=== PATIENT | female | born 1970 | race Caucasian/White ===

== ENCOUNTER 2016-09-17 10:29 | Emergency (ER) | payer OTHER ==
[~2016-09-17 10:29] MED LIST: /DULO30CA OR; /METO25TAB PO; CIPR500T3 PO; EXTR500C4 PO; FLEXERIL PO; HYDR25TA6 OR; IBUP600T OR; IBUP600T26 PO; LYRI75CA OR; MULTIVIT PO; OMEP20TA7 OR; OMEP40CA2 PO; PERC5TAB6 PO; PERC5TAB8 OR; RAMI25CA OR; TRAM50TA2 OR; VICO5TAB PO; VICODINES TAB OR; ZEST20TA8 PO; ZOLO50TA PO
[2016-09-17] MEDS ORDERED: ASPIRIN 81 MG CHEW TABLET As Ordered ONE (10:56)
[2016-09-17 11:00] LABS: BASO % 0.2 % (0.0-1.0); EOS # 0.2 K/mm3 (0.0-0.50); EOS % 1.5 % (0.0-3.0); LARGE UNSTAINED CELL # 0.2 K/mm3 (0.0-0.4); LARGE UNSTAINED CELL % 1.6 % (0.0-4.0); LYMPH # 2.2 K/mm3 (1.5-4.5); LYMPH % 19.1 % (24.0-44.0); MEAN CORPUSCULAR HGB CONC 34.4 g/dl (32.0-36.5); MEAN CORPUSCULAR VOLUME 90.3 fl (80.0-96.0); MONO # 0.4 K/mm3 (0.0-0.8); MONO % 3.1 % (0.0-5.0); NEUTROPHILS # 8.6 K/mm3 (1.8-7.7); NEUTROPHILS % 74.4 % (36.0-66.0); PLATELET COUNT, AUTOMATED 402 k/mm3 (150-450); RED CELL DISTRIBUTION WIDTH 12.2 % (11.5-14.5); WHITE BLOOD COUNT 11.5 K/mm3 (4.0-10.0)
--- NOTE | 2016-09-17 11:45 | REP ---
Portable chest x-ray: Sitting AP view. History: Chest pain. Comparison chest x-ray May 09, 2016. Findings: Sitting AP chest x-ray shows EKG monitoring electrodes. The lungs are symmetrically aerated and clear. There is no evidence of pneumothorax or hydrothorax. No infiltrate is seen. Heart is not enlarged. Pulmonary vasculature is not increased. Impression: No acute disease. Signed by Garrett Sue MD 09/17/2016 01:37 P
[2016-09-17] MEDS ORDERED: PANTOPRAZOLE 40MG INJ (PROTONIX) (C9113) As Ordered ONE (12:00)
[2016-09-17 12:03] LABS: ALBUMIN 3.3 GM/DL (3.2-5.2); ALKALINE PHOSPHATASE 99 U/L (45-117); ALT/SGPT 14 U/L (12-78); ANION GAP 8 MEQ/L (8-16); AST/SGOT 7 U/L (15-37); BILIRUBIN,DIRECT < 0.1 MG/DL (0.0-0.2); BILIRUBIN,TOTAL 0.3 MG/DL (0.2-1.0); BLOOD UREA NITROGEN 9 MG/DL (7-18); CALCIUM LEVEL 8.5 MG/DL (8.5-10.1); CARBON DIOXIDE LEVEL 31 MEQ/L (21-32); CHLORIDE LEVEL 103 MEQ/L (98-107); CREATININE FOR GFR 0.62 MG/DL (0.55-1.02); GLOMERULAR FILTRATION RATE > 60.0 (>58); GLUCOSE, FASTING 98 MG/DL (70-105); POTASSIUM SERUM 3.9 MEQ/L (3.5-5.1); SODIUM LEVEL 142 MEQ/L (136-145); TOTAL PROTEIN 7.4 GM/DL (6.4-8.2)
[2016-09-17] MEDS ORDERED: ALBUTEROL 90 MCG/ACT 8GM HFA INHALER As Ordered ONE (12:50)
--- NOTE | 2016-09-17 13:19 | EDDOCDS ---
Nurse's Notes [facility] Name: Evie Cheung Age: 46 yrs Sex: Female : 1970 Arrival Date: 09/17/2016 Time: 10:29 Bed 12 Private MD: Tom Ge H. Diagnosis: Acute bronchitis;Strain of other muscles, fascia and tendons at shoulder and upper arm level, left arm;Gastritis, unspecified Presentation: 09/17 10:33 Presenting complaint: Patient states: "I have chest pain, it's been going on for the jc4 past 5 days. It's shooting down my left arm and is under my left breast and it hurts between my shoulder blades. I have bright red blood in my stool, but I'm not going to the bathroom really good. I just can't take the pain anymore". Aspirin was not taken prior to arrival. Adult Sepsis Screening: The patient does not have new or worsening altered mentation. Patient's respiratory rate is less than 22. Systolic blood pressure is greater than 100. Patient has a qSOFA score of 0- Negative Sepsis Screen. Suicide/Homicide risk assessment- the patient denies having any suicidal and/or homicidal ideations and does not present with any other emotional, behavioral or mental health complaints. Status: Patient is not a technical services assistant or dependent. Transition of care: patient was not received from another setting of care. 10:33 Acuity: LUIS ANGEL Level 2 jc4 10:33 Method Of Arrival: Walkin/Carried/Asstd jc4 10:45 Red Flag criteria, patient assessed and taken directly to a bed. jc4 Triage Assessment: 10:37 General: Appears in no apparent distress. Pain: Pain currently is 7 out of 10 on a pain jc4 scale. HIV screening NA for this visit Offered previously. Cardiovascular: Chest pain is described as Pain is 7 out of 10 on a pain scale. radiates to right arm(s) scapula episodes are continuous began 5 days ago is aggravated by sitting position. 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 Cymbalta 60 mg Oral cpDR 1 cap once daily (Last dose: 09/16/2016) 2. tramadol 50 mg Oral tab 1 tab every 4-6 hours as needed (Last dose: 09/15/2016) 3. albuterol sulfate 90 mcg/actuation Inhl aepb 1 puff every 4 hours as needed (Last dose: 09/15/2016) 4. fluticasone 50 mcg/actuation nasal spsn 1 spray 2 times per day (Last dose: 09/16/2016) - PMHx: Asthma; Chronic Back pain; Depression; Hypertension; Sleep Apnea w/ CPAP; RA; - PSHx: Hysterectomy; back surgery; - Social history: Smoking status: Patient uses tobacco products, light tobacco smoker. No barriers to communication noted, The patient speaks fluent Setswana. - Family history: Not pertinent. - : The pt / caregiver states he / she is not on anticoagulants. Home medication list is obtained from the patient. - Exposure Risk Screening:: None identified. Screenin:04 Screening information is obtained from the patient. Fall risk: No risks identified. srm Assistance ADL's: requires no assistance with activities of daily living. Abuse/DV Screen: The patient / caregiver reports he/she is: not in a situation that causes fear, pain or injury. Nutritional screening: No deficits noted. Advance Directives: There is no active DNR order. home support is adequate. Assessment: 11:02 General: Appears in no apparent distress, Behavior is appropriate for age, cooperative. srm Neurological: No deficits noted. Cardiovascular: Rhythm is sinus rhythm. Respiratory: Airway is patent Respiratory effort is even, unlabored, Breath sounds are clear bilaterally. GI: Abdomen is non- distended Bowel sounds present X 4 quads. Abd is soft and non tender X 4 quads. Reports sometimes wakes up during the night with sharp pain in her colon. is being worked up for constipation and is in process of setting up a colonoscopy. Derm: No deficits noted. 12:07 General: Appears in no apparent distress, Behavior is appropriate for age, cooperative, srm states chest pain remains. visitors at bedside NSR on monitor. 12:53 General: Appears in no apparent distress, Behavior is appropriate for age, cooperative. srm Neurological: No deficits noted. EENT: No deficits noted. Cardiovascular: Rhythm is sinus rhythm. Respiratory: No deficits noted. Musculoskeletal: Reports hurts to move right arm, shoulder ROM limited due to discomfort and has been having this c/o- hx rheumatoid arthritis. 13:17 Reassessment: Patient appears in no apparent distress at this time. Neurological: No srm deficits noted. EENT: No deficits noted. Cardiovascular: Rhythm is sinus rhythm. Respiratory: No deficits noted. Vital Signs: 10:31 BP 158 / 86; Pulse 109; Resp 18 S; Temp 98.1(O); Pulse Ox 100% on R/A; Weight 81.65 kg dd6 (R); Height 5 ft. 6 in. (167.64 cm) (R); 11:12 Pulse 96 MON; Resp 20; Pulse Ox 97% ; srm 11:13 BP 145 / 82 (auto/); srm 11:55 Pulse 76 MON; Pulse Ox 98% ; srm 12:21 Pulse 80 MON; Pulse Ox 97% ; srm 12:48 BP 141 / 75 (auto/); srm 12:48 Pulse 90 MON; Resp 20; Pulse Ox 97% ; srm 13:14 BP 151 / 83 (auto/); srm 13:14 Pulse 90 MON; Resp 18; Temp 99.1(TE); Pulse Ox 96% ; srm 10:31 Body Mass Index 29.05 (81.65 kg, 167.64 cm) dd6 Vitals: 10:31 Log In Time: September 17, 2016 at 10:29. RN notified that patient meets Red Flag dd6 criteria. ED Course: 10:31 Patient visited by Keyshawn Ye PCA. dd6 10:31 Tom Ge is Private Physician. dd6 10:31 Patient moved to Waiting dd6 10:35 Triage Initiated jc4 10:39 Brinda Tucker,RN is Primary Nurse. jc4 10:39 Patient moved to 12 jc4 10:48 EKG done per protocol. Performed by ED Staff. Shown to Candi Valera MD. srm 10:49 Patient visited by Mayte Torres, NYDIA. srm 10:54 The patient / caregiver is instructed regarding the plan of care and ED course. Patient srm has correct armband on for positive identification. Placed in gown. Bed in low position. Call light in reach. Side rails up X 1. monitoring manager on. Pulse ox on. NIBP on. 10:54 Inserted saline lock: 18 gauge in left antecubital area and blood collected. srm 10:55 B-Type Natiuretic Peptide Sent. srm 10:55 Basic Metabolic Profile Sent. srm 10:55 CBC with Diff Sent. srm 10:55 Cardiac Injury Profile Sent. srm 10:55 Troponin Sent. srm 10:55 Portable x-ray done. srm 11:01 [facility] ar2 11:01 Candi Valera MD is Attending Physician. ar2 11:04 Patient visited by Mayte Torres RN. srm 11:04 Patient visited by Mayte Torres RN. srm 11:09 Patient visited by Derrick Cuevas PA-C. ar2 11:33 LIVER PROFILE Sent. srm 11:33 LIPASE Sent. srm 11:37 [facility] Payment Agreement was scanned into [employer] and attached to record. jp5 11:56 portable chest Returned. EDMS 12:03 Patient visited by Dorina Rios PCA. ct3 12:07 Patient visited by Mayte Torres RN. srm 12:54 Patient visited by Mayte Torres RN. srm 12:57 Patient visited by Mayte Torres RN. srm 13:05 Tom Ge is Referral Physician. ar2 13:14 Patient visited by Dorina Rios PCA. ct3 13:14 Discontinued lock intact, bleeding controlled, pressure dressing applied, No srm redness/swelling at site. No procedures done that require assistance. Administered Medications: 10:58 Drug: Aspirin 324 mg [aspirin 81 mg chewable tablet (4 tabs)] Route: PO; srm 12:03 Drug: pantoprazole 40 mg [pantoprazole 40 mg intravenous solution] Route: IV; Rate: srm bolus; Site: left antecubital; 12:53 Drug: Ventolin 2 puffs [Ventolin HFA 90 mcg/actuation aerosol inhaler (2 puffs)] Route: srm Inhalation; Order Results: Lab Order: B-Type Natiuretic Peptide; SPEC'M 09/17/16 10:53 Test: BRAIN NATRIURETIC PEPTIDE; Value: 11.4; Range: <100; Units: PG/ML; Status: F Lab Order: Basic Metabolic Profile; SPEC'M 09/17/16 11:21 Test: GLUCOSE, FASTING; Value: 98; Range: 70-105; Units: MG/DL; Status: F Test: BLOOD UREA NITROGEN; Value: 9; Range: 7-18; Units: MG/DL; Status: F Test: CREATININE FOR GFR; Value: 0.62; Range: 0.55-1.02; Units: MG/DL; Status: F Test: GLOMERULAR FILTRATION RATE; Value: > 60.0; Range: >58; Status: F Test: SODIUM LEVEL; Value: 142; Range: 136-145; Units: MEQ/L; Status: F Test: POTASSIUM SERUM; Value: 3.9; Range: 3.5-5.1; Units: MEQ/L; Status: F Test: CHLORIDE LEVEL; Value: 103; Range: 98-107; Units: MEQ/L; Status: F Test: CARBON DIOXIDE LEVEL; Value: 31; Range: 21-32; Units: MEQ/L; Status: F Test: ANION GAP; Value: 8; Range: 8-16; Units: MEQ/L; Status: F Test: CALCIUM LEVEL; Value: 8.5; Range: 8.5-10.1; Units: MG/DL; Status: F Test Note: ; Units are mL/min/1.73 m2 Chronic Kidney Disease Staging per NKF: Stage I & II GFR >=60 Normal to Mildly Decreased Stage III GFR 30-59 Moderately Decreased Stage IV GFR 15-29 Severely Decreased Stage V GFR <15 Very Little GFR Left ESRD GFR <15 on FOOD TASTER Lab Order: CBC with Diff; SPEC'M 09/17/16 10:53 Test: WHITE BLOOD COUNT; Value: 11.5; Range: 4.0-10.0; Abnormal: Above high normal; Units: K/mm3; Status: F Test: RED BLOOD COUNT; Value: 4.50; Range: 4.00-5.40; Units: M/mm3; Status: F Test: HEMOGLOBIN; Value: 14.0; Range: 12.0-16.0; Units: g/dl; Status: F Test: HEMATOCRIT; Value: 40.6; Range: 36.0-47.0; Units: %; Status: F Test: MEAN CORPUSCULAR VOLUME; Value: 90.3; Range: 80.0-96.0; Units: fl; Status: F Test: MEAN CORPUSCULAR HEMOGLOBIN; Value: 31.0; Range: 27.0-33.0; Units: pg; Status: F Test: MEAN CORPUSCULAR HGB CONC; Value: 34.4; Range: 32.0-36.5; Units: g/dl; Status: F Test: RED CELL DISTRIBUTION WIDTH; Value: 12.2; Range: 11.5-14.5; Units: %; Status: F Test: PLATELET COUNT, AUTOMATED; Value: 402; Range: 150-450; Units: k/mm3; Status: F Test: NEUTROPHILS %; Value: 74.4; Range: 36.0-66.0; Abnormal: Above high normal; Units: %; Status: F Test: LYMPH %; Value: 19.1; Range: 24.0-44.0; Abnormal: Below low normal; Units: %; Status: F Test: MONO %; Value: 3.1; Range: 0.0-5.0; Units: %; Status: F Test: EOS %; Value: 1.5; Range: 0.0-3.0; Units: %; Status: F Test: BASO %; Value: 0.2; Range: 0.0-1.0; Units: %; Status: F Test: LARGE UNSTAINED CELL %; Value: 1.6; Range: 0.0-4.0; Units: %; Status: F Test: NEUTROPHILS #; Value: 8.6; Range: 1.8-7.7; Abnormal: Above high normal; Units: K/mm3; Status: F Test: LYMPH #; Value: 2.2; Range: 1.5-4.5; Units: K/mm3; Status: F Test: MONO #; Value: 0.4; Range: 0.0-0.8; Units: K/mm3; Status: F Test: EOS #; Value: 0.2; Range: 0.0-0.50; Units: K/mm3; Status: F Test: BASO #; Value: 0.0; Range: 0.0-0.2; Units: K/mm3; Status: F Test: LARGE UNSTAINED CELL #; Value: 0.2; Range: 0.0-0.4; Units: K/mm3; Status: F Lab Order: Cardiac Injury Profile; SPEC'M 09/17/16 11:21 Test: CPK CREATINE PHOSPHOKINASE; Value: 32; Range: 26-192; Units: U/L; Status: F Test: CK-MB VALUE MASS; Value: 1.0; Range: 0.0-3.6; Units: NG/ML; Status: F Test: MB/CK RELATIVE INDEX; Value: 3.12; Range: < OR =4; Status: F Test Note: ; DIAGNOSIS CRITERIA MMB ng/ml Relative Index (RI) NON-AMI < or = 5 N/A CUEVAS ZONE > 5 < or = 4 AMI > 5 > 4 Lab Order: Troponin; [facility] 09/17/16 11:21 Test: TROPONIN I; Value: < 0.02; Range: < 0.10; Units: NG/ML; Status: F Test Note: ; Troponin I Reference Interval for [employer] LOCI: 99th Percentile= 0.00-0.045 ng/ml Risk Stratification: <= 0.10 ng/ml Decreased Risk for Adverse Clinical Events. 0.10-1.50 ng/ml Increased Risk for Adverse Clinical Events. Evaluation of additional criterion and/or repeat testing in 2-6 hours is suggested to rule out myocardial damage. >= 1.50 ng/ml Indicative of Myocardial Injury. Lab Order: LIPASE; [facility] 09/17/16 11:21 Test: LIPASE; Value: 96; Range: 73-393; Units: U/L; Status: F Lab Order: LIVER PROFILE; [facility] 09/17/16 11:21 Test: AST/SGOT; Value: 7; Range: 15-37; Abnormal: Below low normal; Units: U/L; Status: F Test: ALT/SGPT; Value: 14; Range: 12-78; Units: U/L; Status: F Test: ALKALINE PHOSPHATASE; Value: 99; Range: 45-117; Units: U/L; Status: F Test: BILIRUBIN,TOTAL; Value: 0.3; Range: 0.2-1.0; Units: MG/DL; Status: F Test: BILIRUBIN,DIRECT; Value: < 0.1; Range: 0.0-0.2; Units: MG/DL; Status: F Test: TOTAL PROTEIN; Value: 7.4; Range: 6.4-8.2; Units: GM/DL; Status: F Test: ALBUMIN; Value: 3.3; Range: 3.2-5.2; Units: GM/DL; Status: F Test: ALBUMIN/GLOBULIN RATIO; Value: 0.80; Range: 1.00-1.93; Abnormal: Below low normal; Status: F Radiology Order: portable chest Test: portable chest REASON FOR EXAMINATION: Chest Pain; Portable chest x-ray: Sitting AP view.; ; History: Chest pain.; ; Comparison chest x-ray May 09, 2016.; ; Findings: Sitting AP chest x-ray shows EKG monitoring electrodes. The lungs are; symmetrically aerated and clear. There is no evidence of pneumothorax or; hydrothorax. No infiltrate is seen. Heart is not enlarged. Pulmonary; vasculature is not increased.; ; Impression:; ; No acute disease.; ; ; ; ; Unreviewed; Outcome: 13:06 Discharge ordered by Provider. ar2 13:14 Discharge Assessment: Patient awake, alert and oriented x 3. No cognitive and/or srm functional deficits noted. Patient verbalized understanding of disposition instructions. patient administered narcotics - no. The following High Risk Discharge criteria are identified: None. Discharged to home ambulatory. Condition: good Condition: stable. Discharge instructions given to patient, Instructed on discharge instructions, follow up and referral plans. medication usage, Demonstrated understanding of instructions, medications, Pt was receptive of discharge instructions/ teaching. Prescriptions given X 4. No special radiology studies were completed. Property sent home with patient. 13:18 Patient left the ED. srm Signatures: Dispatcher [employer] EDMS Mayte Torres, RN RN Derrick Anderson, PAYulissaC PAYulissaC ar2 Keyshawn Ye, MUSEUM INFORMATICS SPECIALIST MUSEUM INFORMATICS SPECIALIST dd6 Maame Ewing RN RN jc4 Dorina Rios, MUSEUM INFORMATICS SPECIALIST MUSEUM INFORMATICS SPECIALIST ct3 Malika Napier jp5 MTDD
--- NOTE | 2016-09-17 13:19 | EDDOCDS ---
Physician Documentation [facility] Name: Evie Cheung Age: 46 yrs Sex: Female : 1970 Arrival Date: 09/17/2016 Time: 10:29 Bed 12 Private MD: Tom Ge H. Disposition: 09/17/16 13:06 Discharged to Home/Self Care. Impression: Acute bronchitis, Strain of other muscles, fascia and tendons at shoulder and upper arm level, left arm, Gastritis, unspecified. - Condition is Stable. - Discharge Instructions: Acute Bronchitis, Gastritis, Adult, Muscle Pain, Adult, Gastrointestinal Bleeding. - Prescriptions for Prilosec 20 mg Oral Capsule - take 1 capsule by ORAL route once daily; 10 capsule. Prednisone 20 mg Oral Tablet - take 2 tablet by ORAL route once daily for 5 days; 10 tablet. Mucinex 600 mg - take 1 tablet by ORAL route 2 times per day; 30 tablet. benzonatate 200 mg Oral Capsule - take 1 capsule by ORAL route 3 times per day As needed; 30 capsule. - Medication Reconciliation, Local Pharmacy Hours form. - Follow up: Tom Ge; When: 2 - 3 days; Reason: Recheck today's complaints. Follow up: Emergency Department; When: As needed; Reason: Fever > 102F, Trouble breathing, Worsening of conditions. - Problem is new. - Symptoms have improved. Historical: - Allergies: Tetracycline (Rash); - Home Meds: 1. Cymbalta 60 mg Oral cpDR 1 cap once daily (Last dose: 09/16/2016) 2. tramadol 50 mg Oral tab 1 tab every 4-6 hours as needed (Last dose: 09/15/2016) 3. albuterol sulfate 90 mcg/actuation Inhl aepb 1 puff every 4 hours as needed (Last dose: 09/15/2016) 4. fluticasone 50 mcg/actuation nasal spsn 1 spray 2 times per day (Last dose: 09/16/2016) - PMHx: Asthma; Chronic Back pain; Depression; Hypertension; Sleep Apnea w/ CPAP; RA; - PSHx: Hysterectomy; back surgery; - Social history: Smoking status: Patient uses tobacco products, light tobacco smoker. No barriers to communication noted, The patient speaks fluent Maltese. - Family history: Not pertinent. - : The pt / caregiver states he / she is not on anticoagulants. Home medication list is obtained from the patient. - Exposure Risk Screening:: None identified. 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 6 in. (167.64 cm) (R); 11:12 Pulse 96 MON; Resp 20; Pulse Ox 97% ; srm 11:13 BP 145 / 82 (auto/); srm 11:55 Pulse 76 MON; Pulse Ox 98% ; srm 12:21 Pulse 80 MON; Pulse Ox 97% ; srm 12:48 BP 141 / 75 (auto/); srm 12:48 Pulse 90 MON; Resp 20; Pulse Ox 97% ; srm 13:14 BP 151 / 83 (auto/); srm 13:14 Pulse 90 MON; Resp 18; Temp 99.1(TE); Pulse Ox 96% ; srm 10:31 Body Mass Index 29.05 (81.65 kg, 167.64 cm) dd6 MDM: 10:39 ECG WITH READING ER PHYS+CARDIAG ordered. EDMS 10:45 Aspirin Chewable Tablet 324 mg PO once ordered. fg 10:45 Telephone Operators Supervisor/Pulse Ox/q 30 min VS ordered. fg 10:45 IV Saline Lock ordered. fg 10:45 Rhythm Strip to chart ordered. fg 10:45 Undress patient appropriately for examination ordered. fg 10:47 B-Type Natiuretic Peptide Ordered. EDMS 10:47 Basic Metabolic Profile Ordered. EDMS 10:47 CBC with Diff Ordered. EDMS 10:47 Cardiac Injury Profile Ordered. EDMS 10:47 Troponin Ordered. EDMS 10:47 portable chest Ordered. EDMS 11:20 Misc. Nursing Order ordered. ar2 11:20 pantoprazole 40 mg IV at bolus once ordered. ar2 11:31 LIPASE Ordered. EDMS 11:31 LIVER PROFILE Ordered. EDMS 11:37 [facility] Payment Agreement was scanned into [employer] and attached to record. jp5 11:37 Financial registration complete. jp5 12:37 CBC with Diff Reviewed. ar2 12:37 LIVER PROFILE Reviewed. ar2 12:37 B-Type Natiuretic Peptide Reviewed. ar2 12:37 Basic Metabolic Profile Reviewed. ar2 12:37 Cardiac Injury Profile Reviewed. ar2 12:37 Troponin Reviewed. ar2 12:37 LIPASE Reviewed. ar2 12:37 portable chest Reviewed. ar2 12:43 Ventolin Inhaler 2 puffs Inhalation once ordered. ar2 Administered Medications: 10:58 Drug: Aspirin 324 mg [aspirin 81 mg chewable tablet (4 tabs)] Route: PO; srm 12:03 Drug: pantoprazole 40 mg [pantoprazole 40 mg intravenous solution] Route: IV; Rate: srm bolus; Site: left antecubital; 12:53 Drug: Ventolin 2 puffs [Ventolin HFA 90 mcg/actuation aerosol inhaler (2 puffs)] Route: srm Inhalation; Signatures: Dispatcher [employer] Mayte Greenwood, RN RN srm Derrick Cuevas PA-C PA-C ar2 Maame Ewing RN RN jc4 Malika Napier jp5 Candi Valera MD MD fg The chart was reviewed and I authenticate all verbal orders and agree with the evaluation and treatment provided.Corrections: (The following items were deleted from the chart) 11:31 11:21 LIVER PROFILE+LAB ordered. EDMS EDMS 11:31 11:21 LIPASE+LAB ordered. EDMS EDMS Attachments: 11:37 [facility] Payment Agreement jp5 MTDD
--- NOTE | 2016-09-18 08:01 | ECGEPIP ---
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
--- NOTE | 2016-09-19 14:19 | EDDOCDS ---
Nurse's Notes [facility] Name: Avtar Chadwick Age: 46 yrs Sex: Female : 1970 Arrival Date: 09/17/2016 Time: 10:29 Bed 12 Private MD: Tom Ge H. Diagnosis: Acute bronchitis;Strain of other muscles, fascia and tendons at shoulder and upper arm level, left arm;Gastritis, unspecified Presentation: 09/17 10:33 Presenting complaint: Patient states: "I have chest pain, it's been going on for the jc4 past 5 days. It's shooting down my left arm and is under my left breast and it hurts between my shoulder blades. I have bright red blood in my stool, but I'm not going to the bathroom really good. I just can't take the pain anymore". Aspirin was not taken prior to arrival. Adult Sepsis Screening: The patient does not have new or worsening altered mentation. Patient's respiratory rate is less than 22. Systolic blood pressure is greater than 100. Patient has a qSOFA score of 0- Negative Sepsis Screen. Suicide/Homicide risk assessment- the patient denies having any suicidal and/or homicidal ideations and does not present with any other emotional, behavioral or mental health complaints. Status: Patient is not a food service sales representatives or dependent. Transition of care: patient was not received from another setting of care. 10:33 Acuity: LUIS ANGEL Level 2 jc4 10:33 Method Of Arrival: Walkin/Carried/Asstd jc4 10:45 Red Flag criteria, patient assessed and taken directly to a bed. jc4 Triage Assessment: 10:37 General: Appears in no apparent distress. Pain: Pain currently is 7 out of 10 on a pain jc4 scale. HIV screening NA for this visit Offered previously. Cardiovascular: Chest pain is described as Pain is 7 out of 10 on a pain scale. radiates to right arm(s) scapula episodes are continuous began 5 days ago is aggravated by sitting position. 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 Cymbalta 60 mg Oral cpDR 1 cap once daily (Last dose: 09/16/2016) 2. tramadol 50 mg Oral tab 1 tab every 4-6 hours as needed (Last dose: 09/15/2016) 3. albuterol sulfate 90 mcg/actuation Inhl aepb 1 puff every 4 hours as needed (Last dose: 09/15/2016) 4. fluticasone 50 mcg/actuation nasal spsn 1 spray 2 times per day (Last dose: 09/16/2016) - PMHx: Asthma; Chronic Back pain; Depression; Hypertension; Sleep Apnea w/ CPAP; RA; - PSHx: Hysterectomy; back surgery; - Social history: Smoking status: Patient uses tobacco products, light tobacco smoker. No barriers to communication noted, The patient speaks fluent Wolof. - Family history: Not pertinent. - : The pt / caregiver states he / she is not on anticoagulants. Home medication list is obtained from the patient. - Exposure Risk Screening:: None identified. Screenin:04 Screening information is obtained from the patient. Fall risk: No risks identified. srm Assistance ADL's: requires no assistance with activities of daily living. Abuse/DV Screen: The patient / caregiver reports he/she is: not in a situation that causes fear, pain or injury. Nutritional screening: No deficits noted. Advance Directives: There is no active DNR order. home support is adequate. Assessment: 11:02 General: Appears in no apparent distress, Behavior is appropriate for age, cooperative. srm Neurological: No deficits noted. Cardiovascular: Rhythm is sinus rhythm. Respiratory: Airway is patent Respiratory effort is even, unlabored, Breath sounds are clear bilaterally. GI: Abdomen is non- distended Bowel sounds present X 4 quads. Abd is soft and non tender X 4 quads. Reports sometimes wakes up during the night with sharp pain in her colon. is being worked up for constipation and is in process of setting up a colonoscopy. Derm: No deficits noted. 12:07 General: Appears in no apparent distress, Behavior is appropriate for age, cooperative, srm states chest pain remains. visitors at bedside NSR on monitor. 12:53 General: Appears in no apparent distress, Behavior is appropriate for age, cooperative. srm Neurological: No deficits noted. EENT: No deficits noted. Cardiovascular: Rhythm is sinus rhythm. Respiratory: No deficits noted. Musculoskeletal: Reports hurts to move right arm, shoulder ROM limited due to discomfort and has been having this c/o- hx rheumatoid arthritis. 13:17 Reassessment: Patient appears in no apparent distress at this time. Neurological: No srm deficits noted. EENT: No deficits noted. Cardiovascular: Rhythm is sinus rhythm. Respiratory: No deficits noted. Vital Signs: 10:31 BP 158 / 86; Pulse 109; Resp 18 S; Temp 98.1(O); Pulse Ox 100% on R/A; Weight 81.65 kg dd6 (R); Height 5 ft. 6 in. (167.64 cm) (R); 11:12 Pulse 96 MON; Resp 20; Pulse Ox 97% ; srm 11:13 BP 145 / 82 (auto/); srm 11:55 Pulse 76 MON; Pulse Ox 98% ; srm 12:21 Pulse 80 MON; Pulse Ox 97% ; srm 12:48 BP 141 / 75 (auto/); srm 12:48 Pulse 90 MON; Resp 20; Pulse Ox 97% ; srm 13:14 BP 151 / 83 (auto/); srm 13:14 Pulse 90 MON; Resp 18; Temp 99.1(TE); Pulse Ox 96% ; srm 10:31 Body Mass Index 29.05 (81.65 kg, 167.64 cm) dd6 Vitals: 10:31 Log In Time: September 17, 2016 at 10:29. RN notified that patient meets Red Flag dd6 criteria. ED Course: 10:31 Patient visited by Keyshawn Ye PCA. dd6 10:31 Tom Ge is Private Physician. dd6 10:31 Patient moved to Waiting dd6 10:35 Triage Initiated jc4 10:39 Brinda Tucker,RN is Primary Nurse. jc4 10:39 Patient moved to 12 jc4 10:48 EKG done per protocol. Performed by ED Staff. Shown to Candi Valera MD. srm 10:49 Patient visited by Mayte Torres, NYDIA. srm 10:54 The patient / caregiver is instructed regarding the plan of care and ED course. Patient srm has correct armband on for positive identification. Placed in gown. Bed in low position. Call light in reach. Side rails up X 1. chemistry physics teacher on. Pulse ox on. NIBP on. 10:54 Inserted saline lock: 18 gauge in left antecubital area and blood collected. srm 10:55 B-Type Natiuretic Peptide Sent. srm 10:55 Basic Metabolic Profile Sent. srm 10:55 CBC with Diff Sent. srm 10:55 Cardiac Injury Profile Sent. srm 10:55 Troponin Sent. srm 10:55 Portable x-ray done. srm 11:01 Derrick Cuevas PA-C is PHCP. ar2 11:01 Candi Valera MD is Attending Physician. ar2 11:04 Patient visited by Mayte Torres RN. srm 11:04 Patient visited by Mayte Torres RN. srm 11:09 Patient visited by Derrick Cuevas PA-C. ar2 11:33 LIVER PROFILE Sent. srm 11:33 LIPASE Sent. srm 11:37 [facility] Payment Agreement was scanned into [email or web address] and attached to record. jp5 11:56 portable chest Returned. EDMS 12:03 Patient visited by Dorina Rios PCA. ct3 12:07 Patient visited by Mayte Torres RN. srm 12:54 Patient visited by Mayte Torres RN. srm 12:57 Patient visited by Mayte Torres RN. srm 13:05 Tom Ge is Referral Physician. ar2 13:14 Patient visited by Dorina Rios PCA. ct3 13:14 Discontinued lock intact, bleeding controlled, pressure dressing applied, No srm redness/swelling at site. No procedures done that require assistance. 13:50 portable chest Returned. EDMS 14:43 T-Sheet-- Draft Copy was scanned into [email or web address] and attached to record. gb 14:43 ECG/EKG was scanned into [email or web address] and attached to record. gb 14:43 Trend VS was scanned into [email or web address] and attached to record. gb 14:43 Radiology Report was scanned into [email or web address] and attached to record. gb 09/18 08:09 EKG-ADULT Returned. EDMS Administered Medications: 09/17 10:58 Drug: Aspirin 324 mg [aspirin 81 mg chewable tablet (4 tabs)] Route: PO; srm 12:03 Drug: pantoprazole 40 mg [pantoprazole 40 mg intravenous solution] Route: IV; Rate: srm bolus; Site: left antecubital; 12:53 Drug: Ventolin 2 puffs [Ventolin HFA 90 mcg/actuation aerosol inhaler (2 puffs)] Route: srm Inhalation; Attachments: 14:43 Trend VS gb Order Results: Lab Order: B-Type Natiuretic Peptide; SPEC'M 09/17/16 10:53 Test: BRAIN NATRIURETIC PEPTIDE; Value: 11.4; Range: <100; Units: PG/ML; Status: F Lab Order: Basic Metabolic Profile; [facility] 09/17/16 11:21 Test: GLUCOSE, FASTING; Value: 98; Range: 70-105; Units: MG/DL; Status: F Test: BLOOD UREA NITROGEN; Value: 9; Range: 7-18; Units: MG/DL; Status: F Test: CREATININE FOR GFR; Value: 0.62; Range: 0.55-1.02; Units: MG/DL; Status: F Test: GLOMERULAR FILTRATION RATE; Value: > 60.0; Range: >58; Status: F Test: SODIUM LEVEL; Value: 142; Range: 136-145; Units: MEQ/L; Status: F Test: POTASSIUM SERUM; Value: 3.9; Range: 3.5-5.1; Units: MEQ/L; Status: F Test: CHLORIDE LEVEL; Value: 103; Range: 98-107; Units: MEQ/L; Status: F Test: CARBON DIOXIDE LEVEL; Value: 31; Range: 21-32; Units: MEQ/L; Status: F Test: ANION GAP; Value: 8; Range: 8-16; Units: MEQ/L; Status: F Test: CALCIUM LEVEL; Value: 8.5; Range: 8.5-10.1; Units: MG/DL; Status: F Test Note: ; Units are mL/min/1.73 m2 Chronic Kidney Disease Staging per NKF: Stage I & II GFR >=60 Normal to Mildly Decreased Stage III GFR 30-59 Moderately Decreased Stage IV GFR 15-29 Severely Decreased Stage V GFR <15 Very Little GFR Left ESRD GFR <15 on RECONSIGNMENT CLERK Lab Order: CBC with Diff; [facility]' 09/17/16 10:53 Test: WHITE BLOOD COUNT; Value: 11.5; Range: 4.0-10.0; Abnormal: Above high normal; Units: K/mm3; Status: F Test: RED BLOOD COUNT; Value: 4.50; Range: 4.00-5.40; Units: M/mm3; Status: F Test: HEMOGLOBIN; Value: 14.0; Range: 12.0-16.0; Units: g/dl; Status: F Test: HEMATOCRIT; Value: 40.6; Range: 36.0-47.0; Units: %; Status: F Test: MEAN CORPUSCULAR VOLUME; Value: 90.3; Range: 80.0-96.0; Units: fl; Status: F Test: MEAN CORPUSCULAR HEMOGLOBIN; Value: 31.0; Range: 27.0-33.0; Units: pg; Status: F Test: MEAN CORPUSCULAR HGB CONC; Value: 34.4; Range: 32.0-36.5; Units: g/dl; Status: F Test: RED CELL DISTRIBUTION WIDTH; Value: 12.2; Range: 11.5-14.5; Units: %; Status: F Test: PLATELET COUNT, AUTOMATED; Value: 402; Range: 150-450; Units: k/mm3; Status: F Test: NEUTROPHILS %; Value: 74.4; Range: 36.0-66.0; Abnormal: Above high normal; Units: %; Status: F Test: LYMPH %; Value: 19.1; Range: 24.0-44.0; Abnormal: Below low normal; Units: %; Status: F Test: MONO %; Value: 3.1; Range: 0.0-5.0; Units: %; Status: F Test: EOS %; Value: 1.5; Range: 0.0-3.0; Units: %; Status: F Test: BASO %; Value: 0.2; Range: 0.0-1.0; Units: %; Status: F Test: LARGE UNSTAINED CELL %; Value: 1.6; Range: 0.0-4.0; Units: %; Status: F Test: NEUTROPHILS #; Value: 8.6; Range: 1.8-7.7; Abnormal: Above high normal; Units: K/mm3; Status: F Test: LYMPH #; Value: 2.2; Range: 1.5-4.5; Units: K/mm3; Status: F Test: MONO #; Value: 0.4; Range: 0.0-0.8; Units: K/mm3; Status: F Test: EOS #; Value: 0.2; Range: 0.0-0.50; Units: K/mm3; Status: F Test: BASO #; Value: 0.0; Range: 0.0-0.2; Units: K/mm3; Status: F Test: LARGE UNSTAINED CELL #; Value: 0.2; Range: 0.0-0.4; Units: K/mm3; Status: F Lab Order: Cardiac Injury Profile; [facility] 09/17/16 11:21 Test: CPK CREATINE PHOSPHOKINASE; Value: 32; Range: 26-192; Units: U/L; Status: F Test: CK-MB VALUE MASS; Value: 1.0; Range: 0.0-3.6; Units: NG/ML; Status: F Test: MB/CK RELATIVE INDEX; Value: 3.12; Range: < OR =4; Status: F Test Note: ; DIAGNOSIS CRITERIA MMB ng/ml Relative Index (RI) NON-AMI < or = 5 N/A CUEVAS ZONE > 5 < or = 4 AMI > 5 > 4 Lab Order: Troponin; [facility] 09/17/16 11: Test: TROPONIN I; Value: < 0.02; Range: < 0.10; Units: NG/ML; Status: F Test Note: ; Troponin I Reference Interval for [employer] LOCI: 99th Percentile= 0.00-0.045 ng/ml Risk Stratification: <= 0.10 ng/ml Decreased Risk for Adverse Clinical Events. 0.10-1.50 ng/ml Increased Risk for Adverse Clinical Events. Evaluation of additional criterion and/or repeat testing in 2-6 hours is suggested to rule out myocardial damage. >= 1.50 ng/ml Indicative of Myocardial Injury. Lab Order: LIPASE; [facility] 09/17/16 11:21 Test: LIPASE; Value: 96; Range: 73-393; Units: U/L; Status: F Lab Order: LIVER PROFILE; [facility] 09/17/16 11:21 Test: AST/SGOT; Value: 7; Range: 15-37; Abnormal: Below low normal; Units: U/L; Status: F Test: ALT/SGPT; Value: 14; Range: 12-78; Units: U/L; Status: F Test: ALKALINE PHOSPHATASE; Value: 99; Range: 45-117; Units: U/L; Status: F Test: BILIRUBIN,TOTAL; Value: 0.3; Range: 0.2-1.0; Units: MG/DL; Status: F Test: BILIRUBIN,DIRECT; Value: < 0.1; Range: 0.0-0.2; Units: MG/DL; Status: F Test: TOTAL PROTEIN; Value: 7.4; Range: 6.4-8.2; Units: GM/DL; Status: F Test: ALBUMIN; Value: 3.3; Range: 3.2-5.2; Units: GM/DL; Status: F Test: ALBUMIN/GLOBULIN RATIO; Value: 0.80; Range: 1.00-1.93; Abnormal: Below low normal; Status: F Radiology Order: EKG-ADULT Test: EKG-ADULT REASON FOR EXAMINATION: Chest Pain; Stationary ECG Study; [facility] - ED; ; Test Date: 2016-09-17; Pat Name: AVTAR CHADWICK Department:; Room: -; Gender: F [employer]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 The lungs are; symmetrically aerated and clear. There is no evidence of pneumothorax or; hydrothorax. No infiltrate is seen. Heart is not enlarged. Pulmonary; vasculature is not increased.; ; Impression:; ; No acute disease.; ; ; Signed by; Garrett Sue MD 09/17/2016 01:37 P; Outcome: 13:06 Discharge ordered by Provider. ar2 13:14 Discharge Assessment: Patient awake, alert and oriented x 3. No cognitive and/or srm functional deficits noted. Patient verbalized understanding of disposition instructions. patient administered narcotics - no. The following High Risk Discharge criteria are identified: None. Discharged to home ambulatory. Condition: good Condition: stable. Discharge instructions given to patient, Instructed on discharge instructions, follow up and referral plans. medication usage, Demonstrated understanding of instructions, medications, Pt was receptive of discharge instructions/ teaching. Prescriptions given X 4. No special radiology studies were completed. Property sent home with patient. 13:18 Patient left the ED. srm Signatures: Dispatcher [employer] EDMS Mayte Torres, RN RN srm Carla Bravo, Reg Reg gb Derrick Cuevas, ARELY PA-Sonam ar2 Keyshawn Ye, CAUSTIC OPERATOR CAUSTIC OPERATOR dd6 Maame Ewing RN RN jc4 Dorina Rios, CAUSTIC OPERATOR CAUSTIC OPERATOR ct3 Malika Napier jp5 Chart Complete MTDD
--- NOTE | 2016-09-19 14:19 | EDDOCDS ---
Physician Documentation [facility] Name: Evie Cheung Age: 46 yrs Sex: Female : 1970 Arrival Date: 09/17/2016 Time: 10:29 Bed 12 Private MD: Tom Ge H. Disposition: 09/17/16 13:06 Discharged to Home/Self Care. Impression: Acute bronchitis, Strain of other muscles, fascia and tendons at shoulder and upper arm level, left arm, Gastritis, unspecified. - Condition is Stable. - Discharge Instructions: Acute Bronchitis, Gastritis, Adult, Muscle Pain, Adult, Gastrointestinal Bleeding. - Prescriptions for Prilosec 20 mg Oral Capsule - take 1 capsule by ORAL route once daily; 10 capsule. Prednisone 20 mg Oral Tablet - take 2 tablet by ORAL route once daily for 5 days; 10 tablet. Mucinex 600 mg - take 1 tablet by ORAL route 2 times per day; 30 tablet. benzonatate 200 mg Oral Capsule - take 1 capsule by ORAL route 3 times per day As needed; 30 capsule. - Medication Reconciliation, Local Pharmacy Hours form. - Follow up: Tom Ge; When: 2 - 3 days; Reason: Recheck today's complaints. Follow up: Emergency Department; When: As needed; Reason: Fever > 102F, Trouble breathing, Worsening of conditions. - Problem is new. - Symptoms have improved. Historical: - Allergies: Tetracycline (Rash); - Home Meds: 1. Cymbalta 60 mg Oral cpDR 1 cap once daily (Last dose: 09/16/2016) 2. tramadol 50 mg Oral tab 1 tab every 4-6 hours as needed (Last dose: 09/15/2016) 3. albuterol sulfate 90 mcg/actuation Inhl aepb 1 puff every 4 hours as needed (Last dose: 09/15/2016) 4. fluticasone 50 mcg/actuation nasal spsn 1 spray 2 times per day (Last dose: 09/16/2016) - PMHx: Asthma; Chronic Back pain; Depression; Hypertension; Sleep Apnea w/ CPAP; RA; - PSHx: Hysterectomy; back surgery; - Social history: Smoking status: Patient uses tobacco products, light tobacco smoker. No barriers to communication noted, The patient speaks fluent Estonian. - Family history: Not pertinent. - : The pt / caregiver states he / she is not on anticoagulants. Home medication list is obtained from the patient. - Exposure Risk Screening:: None identified. 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 6 in. (167.64 cm) (R); 11:12 Pulse 96 MON; Resp 20; Pulse Ox 97% ; srm 11:13 BP 145 / 82 (auto/); srm 11:55 Pulse 76 MON; Pulse Ox 98% ; srm 12:21 Pulse 80 MON; Pulse Ox 97% ; srm 12:48 BP 141 / 75 (auto/); srm 12:48 Pulse 90 MON; Resp 20; Pulse Ox 97% ; srm 13:14 BP 151 / 83 (auto/); srm 13:14 Pulse 90 MON; Resp 18; Temp 99.1(TE); Pulse Ox 96% ; srm 10:31 Body Mass Index 29.05 (81.65 kg, 167.64 cm) dd6 MDM: 10:39 ECG WITH READING ER PHYS+CARDIAG ordered. EDMS 10:45 Aspirin Chewable Tablet 324 mg PO once ordered. fg 10:45 Extractor Loader And Unloader/Pulse Ox/q 30 min VS ordered. fg 10:45 IV Saline Lock ordered. fg 10:45 Rhythm Strip to chart ordered. fg 10:45 Undress patient appropriately for examination ordered. fg 10:47 B-Type Natiuretic Peptide Ordered. EDMS 10:47 Basic Metabolic Profile Ordered. EDMS 10:47 CBC with Diff Ordered. EDMS 10:47 Cardiac Injury Profile Ordered. EDMS 10:47 Troponin Ordered. EDMS 10:47 portable chest Ordered. EDMS 11:20 Misc. Nursing Order ordered. ar2 11:20 pantoprazole 40 mg IV at bolus once ordered. ar2 11:31 LIPASE Ordered. EDMS 11:31 LIVER PROFILE Ordered. EDMS 11:37 [facility] Payment Agreement was scanned into [employer] and attached to record. jp5 11:37 Financial registration complete. jp5 12:37 CBC with Diff Reviewed. ar2 12:37 LIVER PROFILE Reviewed. ar2 12:37 B-Type Natiuretic Peptide Reviewed. ar2 12:37 Basic Metabolic Profile Reviewed. ar2 12:37 Cardiac Injury Profile Reviewed. ar2 12:37 Troponin Reviewed. ar2 12:37 LIPASE Reviewed. ar2 12:37 portable chest Reviewed. ar2 12:43 Ventolin Inhaler 2 puffs Inhalation once ordered. ar2 14:43 T-Sheet-- Draft Copy was scanned into [employer] and attached to record. gb 14:43 ECG/EKG was scanned into [employer] and attached to record. gb 14:43 Trend VS was scanned into [employer] and attached to record. gb 14:43 Radiology Report was scanned into [employer] and attached to record. gb Administered Medications: 10:58 Drug: Aspirin 324 mg [aspirin 81 mg chewable tablet (4 tabs)] Route: PO; srm 12:03 Drug: pantoprazole 40 mg [pantoprazole 40 mg intravenous solution] Route: IV; Rate: srm bolus; Site: left antecubital; 12:53 Drug: Ventolin 2 puffs [Ventolin HFA 90 mcg/actuation aerosol inhaler (2 puffs)] Route: srm Inhalation; Signatures: Dispatcher [employer] EDMS Mayte Torres, RN RN srm Shelly, Carla, Reg Reg gb Derrick Cuevas, ARELY MCGEE ar2 Maame Ewing, RN RN Malika Judge jp5 Candi Valera MD MD fg The chart was reviewed and I authenticate all verbal orders and agree with the evaluation and treatment provided.Corrections: (The following items were deleted from the chart) 11:31 11:21 LIVER PROFILE+LAB ordered. EDMS EDMS 11:31 11:21 LIPASE+LAB ordered. EDMS EDMS Attachments: 11:37 [facility] Payment Agreement jp5 14:43 T-Sheet-- Draft Copy gb 14:43 ECG/EKG gb Chart Complete MTDD
--- NOTE | 2016-09-19 14:19 | EDDOCDS ---
Physician Documentation [facility] Name: Evie Cheung Age: 46 yrs Sex: Female : 1970 Arrival Date: 09/17/2016 Time: 10:29 Bed 12 Private MD: Tom Ge H. Disposition: 09/17/16 13:06 Discharged to Home/Self Care. Impression: Acute bronchitis, Strain of other muscles, fascia and tendons at shoulder and upper arm level, left arm, Gastritis, unspecified. - Condition is Stable. - Discharge Instructions: Acute Bronchitis, Gastritis, Adult, Muscle Pain, Adult, Gastrointestinal Bleeding. - Prescriptions for Prilosec 20 mg Oral Capsule - take 1 capsule by ORAL route once daily; 10 capsule. Prednisone 20 mg Oral Tablet - take 2 tablet by ORAL route once daily for 5 days; 10 tablet. Mucinex 600 mg - take 1 tablet by ORAL route 2 times per day; 30 tablet. benzonatate 200 mg Oral Capsule - take 1 capsule by ORAL route 3 times per day As needed; 30 capsule. - Medication Reconciliation, Local Pharmacy Hours form. - Follow up: Tom Ge; When: 2 - 3 days; Reason: Recheck today's complaints. Follow up: Emergency Department; When: As needed; Reason: Fever > 102F, Trouble breathing, Worsening of conditions. - Problem is new. - Symptoms have improved. Historical: - Allergies: Tetracycline (Rash); - Home Meds: 1. Cymbalta 60 mg Oral cpDR 1 cap once daily (Last dose: 09/16/2016) 2. tramadol 50 mg Oral tab 1 tab every 4-6 hours as needed (Last dose: 09/15/2016) 3. albuterol sulfate 90 mcg/actuation Inhl aepb 1 puff every 4 hours as needed (Last dose: 09/15/2016) 4. fluticasone 50 mcg/actuation nasal spsn 1 spray 2 times per day (Last dose: 09/16/2016) - PMHx: Asthma; Chronic Back pain; Depression; Hypertension; Sleep Apnea w/ CPAP; RA; - PSHx: Hysterectomy; back surgery; - Social history: Smoking status: Patient uses tobacco products, light tobacco smoker. No barriers to communication noted, The patient speaks fluent Amharic. - Family history: Not pertinent. - : The pt / caregiver states he / she is not on anticoagulants. Home medication list is obtained from the patient. - Exposure Risk Screening:: None identified. 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 6 in. (167.64 cm) (R); 11:12 Pulse 96 MON; Resp 20; Pulse Ox 97% ; srm 11:13 BP 145 / 82 (auto/); srm 11:55 Pulse 76 MON; Pulse Ox 98% ; srm 12:21 Pulse 80 MON; Pulse Ox 97% ; srm 12:48 BP 141 / 75 (auto/); srm 12:48 Pulse 90 MON; Resp 20; Pulse Ox 97% ; srm 13:14 BP 151 / 83 (auto/); srm 13:14 Pulse 90 MON; Resp 18; Temp 99.1(TE); Pulse Ox 96% ; srm 10:31 Body Mass Index 29.05 (81.65 kg, 167.64 cm) dd6 MDM: 10:39 ECG WITH READING ER PHYS+CARDIAG ordered. EDMS 10:45 Aspirin Chewable Tablet 324 mg PO once ordered. fg 10:45 Oceanographer Physical/Pulse Ox/q 30 min VS ordered. fg 10:45 IV Saline Lock ordered. fg 10:45 Rhythm Strip to chart ordered. fg 10:45 Undress patient appropriately for examination ordered. fg 10:47 B-Type Natiuretic Peptide Ordered. EDMS 10:47 Basic Metabolic Profile Ordered. EDMS 10:47 CBC with Diff Ordered. EDMS 10:47 Cardiac Injury Profile Ordered. EDMS 10:47 Troponin Ordered. EDMS 10:47 portable chest Ordered. EDMS 11:20 Misc. Nursing Order ordered. ar2 11:20 pantoprazole 40 mg IV at bolus once ordered. ar2 11:31 LIPASE Ordered. EDMS 11:31 LIVER PROFILE Ordered. EDMS 11:37 [facility] Payment Agreement was scanned into marker.to and attached to record. jp5 11:37 Financial registration complete. jp5 12:37 CBC with Diff Reviewed. ar2 12:37 LIVER PROFILE Reviewed. ar2 12:37 B-Type Natiuretic Peptide Reviewed. ar2 12:37 Basic Metabolic Profile Reviewed. ar2 12:37 Cardiac Injury Profile Reviewed. ar2 12:37 Troponin Reviewed. ar2 12:37 LIPASE Reviewed. ar2 12:37 portable chest Reviewed. ar2 12:43 Ventolin Inhaler 2 puffs Inhalation once ordered. ar2 14:43 T-Sheet-- Draft Copy was scanned into marker.to and attached to record. gb 14:43 ECG/EKG was scanned into [employer] and attached to record. gb 14:43 Trend VS was scanned into MED[employer] and attached to record. gb 14:43 Radiology Report was scanned into MEDHOST and attached to record. gb Administered Medications: 10:58 Drug: Aspirin 324 mg [aspirin 81 mg chewable tablet (4 tabs)] Route: PO; srm 12:03 Drug: pantoprazole 40 mg [pantoprazole 40 mg intravenous solution] Route: IV; Rate: srm bolus; Site: left antecubital; 12:53 Drug: Ventolin 2 puffs [Ventolin HFA 90 mcg/actuation aerosol inhaler (2 puffs)] Route: srm Inhalation; Signatures: Dispatcher [employer] EDMS Mayte Torres, RN RN srm Shelly, Carla, Reg Reg gb Derrick Cuevas, ARELY MCGEE ar2 Maame Ewing, RN RN Malika Judge jp5 Candi Valera MD MD fg The chart was reviewed and I authenticate all verbal orders and agree with the evaluation and treatment provided.Corrections: (The following items were deleted from the chart) 11:31 11:21 LIVER PROFILE+LAB ordered. EDMS EDMS 11:31 11:21 LIPASE+LAB ordered. EDMS EDMS Attachments: 11:37 [facility] Payment Agreement jp5 14:43 T-Sheet-- Draft Copy gb 14:43 ECG/EKG gb Chart Complete MTDD
== END 2016-09-17 13:18 | disposition home or self-care (01) ==
LOC: M ED 10:29
DX: J20.9 Acute bronchitis, unspecified (principal); K29.00 Acute gastritis without bleeding; S46.912A Strain of unspecified muscle, fascia and tendon at shoulder and upper arm level, left arm, initial encounter; J45.909 Unspecified asthma, uncomplicated; F32.9 Major depressive disorder, single episode, unspecified; I10 Essential (primary) hypertension; G47.33 Obstructive sleep apnea (adult) (pediatric); M06.9 Rheumatoid arthritis, unspecified; F17.210 Nicotine dependence, cigarettes, uncomplicated; Z92.240 Personal history of inhaled steroid therapy; Z79.891 Long term (current) use of opiate analgesic; Z79.899 Other long term (current) drug therapy; Z88.1 Allergy status to other antibiotic agents; X58.XXXA Exposure to other specified factors, initial encounter; Y92.89 Other specified places as the place of occurrence of the external cause; Y93.89 Activity, other specified; Y99.9 Unspecified external cause status
CPT/HCPCS: 36415; 71010; 80048; 80076; 82550; 82553; 83690; 83880; 85025; 93005; 93041; 96374; 99285; C9113

== ENCOUNTER → 2017-01-05 | Outpatient (REF) | payer OTHER, MEDICAID ==
[~2017-01-05] MED LIST changes: +ALBU17IN INH; +CYMB60CA3 PO; +FLUTISP; +NORT50CA PO; +TRAM50TA2 PO
== END ==
LOC: M LABWUC 19:10
PROVIDERS: ATTEND Internal Medicine Rheumatology
DX: M06.09 Rheumatoid arthritis without rheumatoid factor, multiple sites (principal)

== ENCOUNTER 2017-02-06 11:05 | Emergency (ER) | payer MEDICAID, OTHER ==
[~2017-02-06] VITALS: Ht 167.6 cm; Wt 89.4 kg
[2017-02-06] MEDS ORDERED: PRED10TA PO ×2 (11:19)
[2017-02-06] MEDS ORDERED: OMEP40CA2 PO (11:19)
[2017-02-06] MEDS ORDERED: HYDR-3713 PO (12:16)
[2017-02-06 12:46] VITALS: BP 150/84
--- NOTE | 2017-02-07 08:18 | ECGEPIP ---
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
== END 2017-02-06 12:45 | disposition home or self-care (01) ==
LOC: M ED 12:01
DX: M54.12 Radiculopathy, cervical region (principal); I10 Essential (primary) hypertension; K44.9 Diaphragmatic hernia without obstruction or gangrene; F41.9 Anxiety disorder, unspecified; F32.9 Major depressive disorder, single episode, unspecified; M06.9 Rheumatoid arthritis, unspecified; F17.200 Nicotine dependence, unspecified, uncomplicated; Z98.1 Arthrodesis status; Z87.442 Personal history of urinary calculi; Z90.79 Acquired absence of other genital organ(s); Z79.899 Other long term (current) drug therapy; Z88.1 Allergy status to other antibiotic agents; Z88.8 Allergy status to other drugs, medicaments and biological substances

== ENCOUNTER 2017-04-12 08:30 | Emergency (ER) | payer OTHER ==
[~2017-04-12] VITALS: Ht 170.2 cm; Wt 81.8 kg
[~2017-04-12 08:30] MED LIST changes: +FLUT1SPR2; +HYDR-3713 PO; +OMEP20CA3 PO; +PERC5TAB12 PO; -PERC5TAB6 PO; +PRED10TA2 PO
[2017-04-12] MEDS ORDERED: KETOROLAC 60 MG/2 ML VIAL (J1885) IM ONE (09:15)
[2017-04-12] MEDS ORDERED: METHOCARBAMOL 500 MG TAB PO ONE (09:15)
--- NOTE | 2017-04-12 10:12 | REP ---
LUMBAR SPINE, FIVE VIEWS: HISTORY: Back pain. COMPARISON: 12/05/2007. The patient is status post L5-S1 anterior and posterior spinal fusion and L4-5 laminectomy. Bone graft material is present anteriorly and metal rods and pedicle screws posteriorly. There is no acute fracture. The L3-4 intervertebral disc is decreased in height consistent with disc degeneration. There are 4 mm of grade 1 spondylolisthesis of L5 on S1. IMPRESSION: The patient is status post L5-S1 anterior and posterior spinal fusion. Signed by Janak Nance MD 04/12/2017 10:14 A
[2017-04-12] MEDS ORDERED: ROBA500T PO (10:26)
[2017-04-12 10:35] VITALS: BP 128/62
== END 2017-04-12 10:35 | disposition home or self-care (01) ==
LOC: M ED 08:30
DX: M54.16 Radiculopathy, lumbar region (principal); Z72.0 Tobacco use
CPT/HCPCS: 72110; 96372; 99282; J1885

== ENCOUNTER 2017-04-17 08:30 | Outpatient (CLI) | payer OTHER ==
[~2017-04-17] VITALS: Ht 170.2 cm; Wt 83.9 kg
[~2017-04-17 08:30] MED LIST changes: +ROBA500T PO
[2017-04-17] MEDS ORDERED: NS 1,000 ML IV SCH (08:45)
[2017-04-17] MEDS ORDERED: LIDOCAINE 2% INJ 100 MG/5 ML SDV (FOR ANES.) As Ordered ONE (09:25)
[2017-04-17] MEDS ORDERED: PROPOFOL 200 MG/20 ML VIAL As Ordered ONE (09:25)
--- NOTE | 2017-04-17 09:36 | ROOR ---
Patient Name: Evie Cheung Procedure Date: 04/17/2017 9:20 AM Date of : 1970 Age: 46 Room: [facility] Gender: Female Note Status: Finalized Procedure: Upper GI endoscopy Indications: Heartburn Providers: Sergo Mcfarland MD Referring MD: JOSE TORRES MD Requesting Provider: Medicines: Monitored Anesthesia Care Complications: No immediate complications. Procedure: Pre-Anesthesia Assessment: - The heart rate, respiratory rate, oxygen saturations, blood pressure, adequacy of pulmonary ventilation, and response to care were monitored throughout the procedure. The Endoscope was introduced through the mouth, and advanced to the second part of duodenum. The upper GI endoscopy was accomplished without difficulty. The patient tolerated the procedure well. Findings: The Z-line was regular and was found 35 cm from the incisors. A medium-sized hiatal hernia was present. No other significant abnormalities were identified in a careful examination of the stomach. The exam of the duodenum was otherwise normal. Impression: - Z-line regular, 35 cm from the incisors. - Medium-sized hiatal hernia. - No specimens collected. - The examination was otherwise normal. Recommendation: - Patient has a contact number available for emergencies. The signs and symptoms of potential delayed complications were discussed with the patient. Return to normal activities tomorrow. Written discharge instructions were provided to the patient. - High fiber diet. - Discharge patient to home. - Continue present medications. - Follow an antireflux regimen. - Return to referring physician. - The findings and recommendations were discussed with the patient's family. Sergo Mcfarland MD Sergo Mcfarland MD 04/17/2017 9:35:33 AM This report has been signed electronically. Number of Addenda: 0 Note Initiated On: 04/17/2017 9:20 AM Estimated Blood Loss: Estimated blood loss: none.
--- NOTE | 2017-04-17 09:59 | ROOR ---
Patient Name: Evie Cheung Procedure Date: 04/17/2017 9:21 AM Date of : 1970 Age: 46 Room: [facility] Gender: Female Note Status: Finalized Procedure: Total Colonoscopy to cecum + Bx. Polypectomy Indications: Screening in patient at increased risk: Colorectal cancer in mother before age 60 Providers: Sergo Mcfarland MD Referring MD: JOSE TORRES MD Requesting Provider: Medicines: Monitored Anesthesia Care Complications: No immediate complications. Procedure: Pre-Anesthesia Assessment: - The heart rate, respiratory rate, oxygen saturations, blood pressure, adequacy of pulmonary ventilation, and response to care were monitored throughout the procedure. The Colonoscope was introduced through the anus and advanced to the cecum, identified by appendiceal orifice and ileocecal valve. The colonoscopy was performed without difficulty. The patient tolerated the procedure well. The quality of the bowel preparation was excellent. Findings: The perianal and digital rectal examinations were normal. Non-bleeding internal hemorrhoids were found during retroflexion. The hemorrhoids were small and Grade I (internal hemorrhoids that do not prolapse). A few sessile polyps were found from 0 to 30 cm proximal to the anus. The polyps were diminutive in size. These polyps were removed with a jumbo cold forceps. Resection and retrieval were complete. Scattered small-mouthed diverticula were found in the recto-sigmoid colon, sigmoid colon and descending colon. The exam was otherwise without abnormality on direct and retroflexion views. Impression: - Non-bleeding internal hemorrhoids. - A few diminutive polyps from 0 to 30 cm proximal to the anus, removed with a jumbo cold forceps. Resected and retrieved. - Diverticulosis in the recto-sigmoid colon, in the sigmoid colon and in the descending colon. - The examination was otherwise normal on direct and retroflexion views. - The exam was otherwise normal to the cecum. Recommendation: - Patient has a contact number available for emergencies. The signs and symptoms of potential delayed complications were discussed with the patient. Return to normal activities tomorrow. Written discharge instructions were provided to the patient. - High fiber diet. - Discharge patient to home. - Continue present medications. - Await pathology results. - Telephone GI clinic for pathology results in 1 week. - Check Portal Online for Path Results.([email or web address]) - Repeat colonoscopy in 5 years for surveillance based on pathology results. - Return to referring physician. - The findings and recommendations were discussed with the patient's family. Sergo Mcfarland MD Sergo Mcfarland MD 04/17/2017 9:59:09 AM This report has been signed electronically. Number of Addenda: 0 Note Initiated On: 04/17/2017 9:21 AM Estimated Blood Loss: Estimated blood loss: none.
[2017-04-17 10:15] VITALS: BP 162/95
== END 2017-04-17 10:25 ==
LOC: M OPP 08:30
PROVIDERS: ATTEND Internal Medicine Gastroenterology
DX: Z12.11 Encounter for screening for malignant neoplasm of colon (principal); Z80.0 Family history of malignant neoplasm of digestive organs; K63.5 Polyp of colon; K64.0 First degree hemorrhoids; K57.30 Diverticulosis of large intestine without perforation or abscess without bleeding; R12 Heartburn; K44.9 Diaphragmatic hernia without obstruction or gangrene; M19.90 Unspecified osteoarthritis, unspecified site; G47.30 Sleep apnea, unspecified; F17.210 Nicotine dependence, cigarettes, uncomplicated; Z79.899 Other long term (current) drug therapy; Z88.1 Allergy status to other antibiotic agents; Z88.8 Allergy status to other drugs, medicaments and biological substances

== ENCOUNTER → 2017-05-24 | Outpatient (CLI) | payer OTHER ==
[2017-05-24 18:40] LABS: THYROXINE (T4) 11.7 UG/DL (4.5-12.0)
== END ==
LOC: M LAB 16:33
PROVIDERS: ATTEND Registered Nurse Psychiatric/Mental Health
DX: Z79.899 Other long term (current) drug therapy (principal)

== ENCOUNTER → 2017-10-09 | Outpatient (REF) | payer OTHER ==
[2017-10-09 13:26] LABS: APPEARANCE, URINE CLEAR (CLEAR); BACTERIA, URINE AUTO NEGATIVE (NEGATIVE); BILIRUBIN, URINE AUTO NEGATIVE (NEGATIVE); BLOOD, URINE BLOOD NEGATIVE (NEGATIVE); COLOR, URINE STRAW (YELLOW); GLUCOSE, URINE (UA) AUTO NEGATIVE (NEGATIVE); KETONE, URINE AUTO NEGATIVE (NEGATIVE); LEUKOCYTE ESTERASE, URINE AUTO NEGATIVE (NEGATIVE); NITRITE, URINE AUTO NEGATIVE (NEGATIVE); PROTEIN, URINE AUTO NEGATIVE (NEGATIVE); RBC, URINE AUTO 0 /HPF (0-3); SPECIFIC GRAVITY URINE AUTO 1.003 (1.002-1.035); SQUAMOUS EPITHELIAL CELL UR AU 0 /HPF (0-6); UROBILINOGEN, URINE AUTO 0.2 mg/dL (0.0-2.0); WBC, URINE AUTO 1 /HPF (0-3)
== END ==
LOC: M SMT 12:49
DX: R10.9 Unspecified abdominal pain (principal)

== ENCOUNTER → 2017-10-16 | Outpatient (CLI) | payer OTHER | LOC: M RAD 16:17 | DX: R10.9 Unspecified abdominal pain (principal); Z87.442 Personal history of urinary calculi | CPT/HCPCS: 74176 ==

== ENCOUNTER 2017-11-28 09:01 | Emergency (ER) | payer OTHER ==
[2017-11-28] MEDS: ONDANSETRON 4 MG ORAL DISINTEGRATING TAB (S0181) PO (09:43)
[2017-11-28 10:01] LABS: BASO % 0.4 % (0.0-1.0); EOS # 0.5 10^3/uL (0.0-0.50); EOS % 5.8 % (0.0-3.0); IMMATURE GRANULOCYTE % 0.1 % (0-3.0); LYMPH % 23.5 % (24.0-44.0); MEAN CORPUSCULAR HEMOGLOBIN 30.5 pg (27.0-33.0); MEAN CORPUSCULAR HGB CONC 33.3 g/dl (32.0-36.5); MEAN CORPUSCULAR VOLUME 91.5 fl (80.0-96.0); MONO # 0.6 10^3/uL (0.0-0.8); MONO % 7.3 % (0.0-5.0); NEUTROPHILS # 5.4 10^3/uL (1.8-7.7); NEUTROPHILS % 62.9 % (36.0-66.0); PLATELET COUNT, AUTOMATED 390 10^3/uL (150-450); RED BLOOD COUNT 4.92 10^6/uL (4.00-5.40); RED CELL DISTRIBUTION WIDTH 13.2 % (11.5-14.5); WHITE BLOOD COUNT 8.6 10^3/uL (4.0-10.0)
[2017-11-28 10:04] LABS: APPEARANCE, URINE CLEAR (CLEAR); BACTERIA, URINE AUTO NEGATIVE (NEGATIVE); BILIRUBIN, URINE AUTO NEGATIVE (NEGATIVE); BLOOD, URINE BLOOD NEGATIVE (NEGATIVE); COLOR, URINE YELLOW (YELLOW); GLUCOSE, URINE (UA) AUTO NEGATIVE (NEGATIVE); KETONE, URINE AUTO NEGATIVE (NEGATIVE); LEUKOCYTE ESTERASE, URINE AUTO NEGATIVE (NEGATIVE); NITRITE, URINE AUTO NEGATIVE (NEGATIVE); PROTEIN, URINE AUTO NEGATIVE (NEGATIVE); RBC, URINE AUTO 1 /HPF (0-3); SPECIFIC GRAVITY URINE AUTO 1.005 (1.002-1.035); SQUAMOUS EPITHELIAL CELL UR AU 2 /HPF (0-6); UROBILINOGEN, URINE AUTO 0.2 mg/dL (0.0-2.0); WBC, URINE AUTO 1 /HPF (0-3)
[2017-11-28 10:24] LABS: ALBUMIN 3.8 GM/DL (3.2-5.2); ALBUMIN/GLOBULIN RATIO 0.95 (1.00-1.93); ALKALINE PHOSPHATASE 110 U/L (45-117); ALT/SGPT 20 U/L (12-78); ANION GAP 2 MEQ/L (8-16); AST/SGOT 10 U/L (7-37); BILIRUBIN,TOTAL 0.5 MG/DL (0.2-1.0); BLOOD UREA NITROGEN 6 MG/DL (7-18); CALCIUM LEVEL 9.2 MG/DL (8.5-10.1); CARBON DIOXIDE LEVEL 34 MEQ/L (21-32); CHLORIDE LEVEL 106 MEQ/L (98-107); CREATININE FOR GFR 0.67 MG/DL (0.55-1.30); GLOMERULAR FILTRATION RATE > 60.0 (>58); GLUCOSE, FASTING 96 MG/DL (70-100); LIPASE 69 U/L (73-393); POTASSIUM SERUM 3.8 MEQ/L (3.5-5.1); SODIUM LEVEL 142 MEQ/L (136-145); TOTAL PROTEIN 7.8 GM/DL (6.4-8.2)
== END 2017-11-28 12:33 | disposition home or self-care (01) ==
LOC: M ED 09:01
DX: R10.9 Unspecified abdominal pain (principal); Z87.442 Personal history of urinary calculi; Z87.19 Personal history of other diseases of the digestive system; Z98.890 Other specified postprocedural states; Z88.8 Allergy status to other drugs, medicaments and biological substances; Z79.51 Long term (current) use of inhaled steroids; Z79.899 Other long term (current) drug therapy
CPT/HCPCS: 76705

== ENCOUNTER 2017-12-13 09:41 | Emergency (ER) | payer OTHER ==
[2017-12-13] MEDS: MORPHINE 4 MG/ML 1ML VIAL (J2270) IV (10:33)
[2017-12-13 10:59] LABS: KETONE, URINE AUTO RFX NEGATIVE (NEGATIVE); LEUKOCYTE ESTERASE UR AUTO RFX NEGATIVE (NEGATIVE); MUCUS, URINE RFX SMALL (NEGATIVE); NITRITE, URINE AUTO RFX NEGATIVE (NEGATIVE); RBC, URINE AUTO RFX 3 /HPF (0-3); SPECIFIC GRAVITY UR AUTO RFX 1.008 (1.002-1.035); SQUAM EPITHELIAL CELL UR AURFX 1 /HPF (0-6); WBC, URINE AUTO RFX 3 /HPF (0-3)
[2017-12-13 11:12] LABS: BASO % 0.6 % (0.0-1.0); EOS # 0.2 10^3/uL (0.0-0.50); EOS % 2.7 % (0.0-3.0); HEMATOCRIT 40.2 % (36.0-47.0); HEMOGLOBIN 13.4 g/dl (12.0-15.5); IMMATURE GRANULOCYTE % 0.2 % (0-3.0); LYMPH # 2.4 10^3/uL (1.5-4.5); LYMPH % 38.5 % (24.0-44.0); MEAN CORPUSCULAR HEMOGLOBIN 30.9 pg (27.0-33.0); MEAN CORPUSCULAR HGB CONC 33.3 g/dl (32.0-36.5); MEAN CORPUSCULAR VOLUME 92.6 fl (80.0-96.0); MONO # 0.4 10^3/uL (0.0-0.8); NEUTROPHILS # 3.2 10^3/uL (1.8-7.7); PLATELET COUNT, AUTOMATED 319 10^3/uL (150-450); RED BLOOD COUNT 4.34 10^6/uL (4.00-5.40); RED CELL DISTRIBUTION WIDTH 13.3 % (11.5-14.5); WHITE BLOOD COUNT 6.3 10^3/uL (4.0-10.0)
[2017-12-13 11:44] LABS: ALBUMIN 3.5 GM/DL (3.2-5.2); ALBUMIN/GLOBULIN RATIO 0.97 (1.00-1.93); ALKALINE PHOSPHATASE 97 U/L (45-117); ALT/SGPT 17 U/L (12-78); AMYLASE 57 U/L (25-115); ANION GAP 3 MEQ/L (8-16); AST/SGOT 14 U/L (7-37); BILIRUBIN,DIRECT 0.1 MG/DL (0.0-0.2); BILIRUBIN,TOTAL 0.3 MG/DL (0.2-1.0); BLOOD UREA NITROGEN 8 MG/DL (7-18); CALCIUM LEVEL 8.7 MG/DL (8.5-10.1); CARBON DIOXIDE LEVEL 31 MEQ/L (21-32); CHLORIDE LEVEL 110 MEQ/L (98-107); CREATININE FOR GFR 0.57 MG/DL (0.55-1.30); GLOMERULAR FILTRATION RATE > 60.0 (>58); GLUCOSE, FASTING 90 MG/DL (70-100); LIPASE 86 U/L (73-393); POTASSIUM SERUM 4.5 MEQ/L (3.5-5.1); SODIUM LEVEL 144 MEQ/L (136-145); TOTAL PROTEIN 7.1 GM/DL (6.4-8.2)
== END 2017-12-13 12:23 | disposition home or self-care (01) ==
LOC: M ED 09:41
DX: S46.812A Strain of other muscles, fascia and tendons at shoulder and upper arm level, left arm, initial encounter (principal); X58.XXXA Exposure to other specified factors, initial encounter; Y92.89 Other specified places as the place of occurrence of the external cause; K80.20 Calculus of gallbladder without cholecystitis without obstruction; M51.9 Unspecified thoracic, thoracolumbar and lumbosacral intervertebral disc disorder; F17.200 Nicotine dependence, unspecified, uncomplicated; Z79.51 Long term (current) use of inhaled steroids; Z79.899 Other long term (current) drug therapy; Z88.8 Allergy status to other drugs, medicaments and biological substances; Z87.442 Personal history of urinary calculi; Z87.448 Personal history of other diseases of urinary system; Z96.9 Presence of functional implant, unspecified; Z98.890 Other specified postprocedural states
CPT/HCPCS: J2270

== ENCOUNTER → 2018-06-11 | Outpatient (CLI) | payer OTHER | LOC: M WHC 13:04 | DX: Z12.31 Encounter for screening mammogram for malignant neoplasm of breast (principal) | CPT/HCPCS: 77067 ==

== ENCOUNTER → 2018-08-01 | Outpatient (CLI) | payer OTHER ==
[2018-08-01 14:53] LABS: CARBOXYHEMOGLOBIN 9.2 % (0.0-1.5)
[2018-08-01 15:05] LABS: BASO # 0.1 10^3/uL (0.0-0.2); BASO % 0.5 % (0.0-1.0); EOS # 0.1 10^3/uL (0.0-0.50); EOS % 1.3 % (0.0-3.0); HEMATOCRIT 43.6 % (36.0-47.0); HEMOGLOBIN 14.3 g/dl (12.0-15.5); IMMATURE GRANULOCYTE % 0.4 % (0-3.0); LYMPH % 27.6 % (24.0-44.0); MEAN CORPUSCULAR HEMOGLOBIN 29.9 pg (27.0-33.0); MEAN CORPUSCULAR HGB CONC 32.8 g/dl (32.0-36.5); MEAN CORPUSCULAR VOLUME 91.2 fl (80.0-96.0); MONO # 0.9 10^3/uL (0.0-0.8); MONO % 7.7 % (0.0-5.0); NEUTROPHILS # 6.9 10^3/uL (1.8-7.7); NEUTROPHILS % 62.5 % (36.0-66.0); PLATELET COUNT, AUTOMATED 445 10^3/uL (150-450); RED BLOOD COUNT 4.78 10^6/uL (4.00-5.40); RED CELL DISTRIBUTION WIDTH 12.7 % (11.5-14.5)
[2018-08-01 15:39] LABS: ALBUMIN 3.5 GM/DL (3.2-5.2); ALBUMIN/GLOBULIN RATIO 0.83 (1.00-1.93); ALKALINE PHOSPHATASE 105 U/L (45-117); ALT/SGPT 25 U/L (12-78); ANION GAP 8 MEQ/L (8-16); AST/SGOT 17 U/L (7-37); BILIRUBIN,TOTAL 0.3 MG/DL (0.2-1.0); BLOOD UREA NITROGEN 10 MG/DL (7-18); C REACTIVE PROTEIN QUANTITATIV 0.94 MG/DL (0.00-0.30); CALCIUM LEVEL 8.9 MG/DL (8.5-10.1); CARBON DIOXIDE LEVEL 28 MEQ/L (21-32); CHLORIDE LEVEL 105 MEQ/L (98-107); CREATININE FOR GFR 0.76 MG/DL (0.55-1.30); GLOMERULAR FILTRATION RATE > 60.0 (>58); GLUCOSE, FASTING 89 MG/DL (70-100); POTASSIUM SERUM 4.4 MEQ/L (3.5-5.1); RHEUMATOID FACTOR QUANT < 10.0 IU/ML (<15.0); SODIUM LEVEL 141 MEQ/L (136-145); TOTAL PROTEIN 7.7 GM/DL (6.4-8.2)
[2018-08-01 16:13] LABS: ERYTHROCYTE SEDIMENTATION RATE 34 mm/hr (0-20)
== END ==
LOC: M WUC 13:42
DX: R51 Headache (principal); M06.9 Rheumatoid arthritis, unspecified
CPT/HCPCS: 80053

== ENCOUNTER 2018-08-29 10:37 | Emergency (ER) | payer OTHER ==
[~2018-08-29] VITALS: Ht 167.6 cm; Wt 100.0 kg
[~2018-08-29 10:37] MED LIST changes: +ADVI200T PO; +LEFL1TAB4 PO; +NORCOTAB PO; +WELLTAB40 PO; +ZOFR4TAB14 PO
[2018-08-29] MEDS ORDERED: TOPI25TA10 (11:00)
[2018-08-29] MEDS ORDERED: NORT50CA (11:00)
[2018-08-29] MEDS ORDERED: NAPR-885 PO (12:45)
[2018-08-29] MEDS ORDERED: PRED10TA2 PO (12:45)
[2018-08-29 12:58] VITALS: BP 144/82
--- NOTE | 2018-08-29 13:39 | REP ---
PELVIS LEFT HIP: Three views. HISTORY: Worsening pain. COMPARISON STUDY: November 28, 2017. FINDINGS: The patient is status post L5-S1 fusion and L5 laminectomy. The bony pelvic ring is intact. Sacrum is otherwise intact. Femoral heads are smooth and rounded and hip joint spaces are preserved. There is peritrochanteric soft tissue calcification on the left, which is unchanged from the comparison radiograph of October. There is mild degenerative sclerosis and narrowing at the symphysis also unchanged. IMPRESSION: Peritrochanteric calcification on the left may reflect bursitis and/or tendonitis. No acute bony abnormality. Degenerative changes are noted in the symphysis pubis. Electronically Signed by Garrett Sue MD 08/29/2018 04:14 P
--- NOTE | 2018-08-30 07:36 | ED PDOC ---
Post-Departure Follow-Up radiology rpeort faxed to Connie Bowser MD Aug 30, 2018 07:36
== END 2018-08-29 13:01 | disposition home or self-care (01) ==
LOC: M ED 10:37
DX: M76.9 Unspecified enthesopathy, lower limb, excluding foot (principal); I10 Essential (primary) hypertension; J45.909 Unspecified asthma, uncomplicated; F33.9 Major depressive disorder, recurrent, unspecified; F41.9 Anxiety disorder, unspecified; G47.33 Obstructive sleep apnea (adult) (pediatric); M06.9 Rheumatoid arthritis, unspecified; Z79.899 Other long term (current) drug therapy; Z88.1 Allergy status to other antibiotic agents; Z88.5 Allergy status to narcotic agent

== ENCOUNTER 2018-09-11 10:29 | Emergency (ER) | payer OTHER ==
[~2018-09-11] VITALS: Ht 170.2 cm; Wt 81.8 kg
[~2018-09-11 10:29] MED LIST changes: +NAPR-885 PO; +NORT50CA; +TOPI25TA10
[2018-09-11 10:30] VITALS: BP 193/87
[2018-09-11] MEDS ORDERED: TIZA4CAP (11:02)
[2018-09-11] MEDS ORDERED: PRED10TA2 PO (11:42)
[2018-09-11] MEDS ORDERED: ROBA500T PO (11:42)
== END 2018-09-11 11:50 | disposition home or self-care (01) ==
LOC: M ED 10:29
DX: M54.32 Sciatica, left side (principal); I10 Essential (primary) hypertension; J45.909 Unspecified asthma, uncomplicated; G47.00 Insomnia, unspecified; K21.9 Gastro-esophageal reflux disease without esophagitis; K44.9 Diaphragmatic hernia without obstruction or gangrene; K51.90 Ulcerative colitis, unspecified, without complications; F41.9 Anxiety disorder, unspecified; F32.9 Major depressive disorder, single episode, unspecified; Z79.899 Other long term (current) drug therapy; Z88.1 Allergy status to other antibiotic agents; Z88.8 Allergy status to other drugs, medicaments and biological substances; Z88.5 Allergy status to narcotic agent

== ENCOUNTER 2019-03-12 18:44 | Emergency (ER) | payer OTHER ==
[~2019-03-12] VITALS: Ht 170.2 cm; Wt 109.1 kg
[~2019-03-12 18:44] MED LIST changes: -/DULO30CA OR; -/METO25TAB PO; +CYMB1CAP5 OR; +HYDR-3715 PO; +METO1TAB87 PO; -NORCOTAB PO; -OMEP20CA3 PO; +OMEP20CA4 PO; +TIZA4CAP
--- NOTE | 2019-03-12 19:35 | ECGEPIP ---
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
[2019-03-12] MEDS ORDERED: GI COCKTAIL 50ML BTL(HYOSCYAMINE/MAALOX/LIDOCAINE VISCOUS)(1:3:1) PO ONE (19:45)
[2019-03-12 19:59] LABS: BASO % 0.3 % (0.0-1.0); EOS # 0.1 10^3/uL (0.0-0.50); EOS % 1.1 % (0.0-3.0); HEMOGLOBIN 13.1 g/dl (12.0-15.5); LYMPH # 4.3 10^3/uL (1.5-4.5); LYMPH % 35.8 % (24.0-44.0); MEAN CORPUSCULAR HEMOGLOBIN 30.5 pg (27.0-33.0); MEAN CORPUSCULAR HGB CONC 33.6 g/dl (32.0-36.5); MEAN CORPUSCULAR VOLUME 90.9 fl (80.0-96.0); MONO # 0.7 10^3/uL (0.0-0.8); NEUTROPHILS # 6.7 10^3/uL (1.8-7.7); NEUTROPHILS % 56.5 % (36.0-66.0); PLATELET COUNT, AUTOMATED 407 10^3/uL (150-450); RED BLOOD COUNT 4.29 10^6/uL (4.00-5.40); WHITE BLOOD COUNT 11.9 10^3/uL (4.0-10.0)
[2019-03-12 20:19] LABS: INR 1.03; PROTHROMBIN TIME 13.2 SECONDS (11.8-14.0)
[2019-03-12 20:20] LABS: PARTIAL THROMBOPLASTIN TIME 31.7 SECONDS (25.0-38.4)
[2019-03-12 20:22] LABS: D-DIMER QUANT 608.07 ng/ml (<500)
[2019-03-12 20:26] LABS: ALBUMIN 3.2 GM/DL (3.2-5.2); ALT/SGPT 18 U/L (12-78); BILIRUBIN,DIRECT < 0.1 MG/DL (0.0-0.2); BILIRUBIN,TOTAL 0.3 MG/DL (0.2-1.0); BLOOD UREA NITROGEN 10 MG/DL (7-18); C REACTIVE PROTEIN QUANTITATIV 1.14 MG/DL (0.00-0.30); CALCIUM LEVEL 8.7 MG/DL (8.5-10.1); CARBON DIOXIDE LEVEL 31 MEQ/L (21-32); CHLORIDE LEVEL 105 MEQ/L (98-107); CK-MB VALUE MASS < 1.0 NG/ML (<3.6); CPK CREATINE PHOSPHOKINASE 67 U/L (26-192); CREATININE FOR GFR 0.64 MG/DL (0.55-1.30); GLOMERULAR FILTRATION RATE > 60.0 (>58); GLUCOSE, FASTING 98 MG/DL (70-100); LIPASE 87 U/L (73-393); MB/CK RELATIVE INDEX 1.49 (< OR =4); POTASSIUM SERUM 3.3 MEQ/L (3.5-5.1); SODIUM LEVEL 141 MEQ/L (136-145); THYROID STIMULATING HORMONE 0.637 uIU/ML (0.358-3.740); TOTAL PROTEIN 6.9 GM/DL (6.4-8.2); TROPONIN I < 0.02 NG/ML (< 0.10)
--- NOTE | 2019-03-12 20:55 | REPVR ---
EXAM: US Duplex Left Lower Extremity Veins, Limited EXAM DATE/TIME: 03/12/2019 8:24 PM CLINICAL HISTORY: 48 years old, female; Pain; Leg, upper; Left; Additional info: Pain, swelling TECHNIQUE: Imaging protocol: Real-time Duplex ultrasound of the Left Lower Extremity with 2-D churchill scale, color Doppler flow and spectral waveform analysis. Limited exam focused on the left lower extremity veins. COMPARISON: No relevant prior studies available. FINDINGS: Left deep veins: Unremarkable. The common femoral, femoral, proximal profunda femoral and popliteal veins are patent without thrombus. Normal Doppler waveforms. Normal compressibility and/or augmentation response. Left superficial veins: Unremarkable. Saphenofemoral junction is patent without thrombus. Soft tissues: Unremarkable. IMPRESSION: No acute findings. No evidence of deep vein thrombosis. Electronically signed by: Tanner Ames On 03/12/2019 20:55:17 PM
[2019-03-12] MEDS ORDERED: ISOVUE-370 76% 100ML VIAL (Q9967) As Ordered ONE (21:01)
--- NOTE | 2019-03-12 21:49 | REPVR ---
EXAM: CT Angiography Chest With Contrast EXAM DATE/TIME: 03/12/2019 9:12 PM CLINICAL HISTORY: 48 years old, female; Shortness of breath; Chest pain; Type not specified; Additional info: Shortness of breath, chest pain TECHNIQUE: Imaging protocol: Axial computed tomographic angiography images of the chest with intravenous contrast using CT angiography protocol. Coronal and sagittal reformatted images were created and reviewed. 3D rendering: MIP reconstructed images were created and reviewed. Radiation optimization: All CT scans at this facility use at least one of these dose optimization techniques: automated exposure control; mA and/or kV adjustment per patient size (includes targeted exams where dose is matched to clinical indication); or iterative reconstruction. Contrast material: ISOVUE 370; Contrast volume: 75 ml; Contrast route: IV; COMPARISON: CR Chest, 2 view PA, Lat 03/12/2019 8:05 PM FINDINGS: Pulmonary arteries: There is opacification of the pulmonary arteries with no evidence of pulmonary embolus. Aorta: There is opacification of the aorta which appears intact. Thyroid: Normal appearing thyroid. Lungs: Unremarkable. No consolidation. No masses. Pleural space: Unremarkable. No pneumothorax. No pleural effusion. Heart: There is no evidence of pericardial effusion. The heart is top normal in size. Mediastinum: 1.6 CM round nodule in the upper aspect of the lung with spiculated borders and contacting the left side of the upper mediastinum. This nodule is very suspicious for a primary malignant nodule. Solitary metastasis is another consideration. The pattern of this nodule is very suggestive of a malignant process. This should undergo CT guided fine needle aspiration biopsy. A PET scan would be give additional information. Lymph nodes: There are 4 lymph nodes in the left axilla measuring 1 CM each. There are 4 lymph nodes along the left side of the aortic arch and pulmonary artery measuring 1 CM each. Small lymph nodes are noted in the left hilum. Bones/joints: Unremarkable. No acute fracture. Soft tissues: Unremarkable. IMPRESSION: 1. No evidence of pulmonary embolus. 2. 1.6 CM nodule left upper lung with spiculated borders contiguous with the left side of the mediastinum. This nodule is very suspicious for a malignant nodule and suggest CT guided fine needle aspiration biopsy and PET CT. 3. 1 cm lymph nodes left side of the upper mediastinum. Electronically signed by: Tanner Ames On 03/12/2019 21:48:30 PM
[2019-03-12] MEDS ORDERED: KETOROLAC 30 MG/ML VIAL (J1885) IV ONE (22:15)
[2019-03-12] MEDS ORDERED: NORC1TAB7 PO (22:52)
[2019-03-12 23:01] VITALS: BP 122/74
--- NOTE | 2019-03-13 01:27 | REP ---
Clinical: Acute chest pain . Comparison: 09/17/2016 . Technique: PA and lateral. Findings: The mediastinum and cardiac silhouette are normal. The lung almonte are clear and without acute consolidation, effusion, or pneumothorax. The skeletal structures are intact and normal. Impression: 1. No acute cardiopulmonary process. Electronically Signed by Rolando Tao MD 03/13/2019 01:19 A
--- NOTE | 2019-03-13 08:02 | ED PDOC ---
Post-Departure Follow-Up dr alonzo and dr de jesus faxed formal report of cta chest for fu Vern Bower MD Mar 13, 2019 08:02
== END 2019-03-12 23:17 | disposition home or self-care (01) ==
LOC: M ED 18:44
DX: R07.89 Other chest pain (principal); F41.9 Anxiety disorder, unspecified; K44.9 Diaphragmatic hernia without obstruction or gangrene; R91.8 Other nonspecific abnormal finding of lung field; G89.29 Other chronic pain; I10 Essential (primary) hypertension; J45.909 Unspecified asthma, uncomplicated; G47.30 Sleep apnea, unspecified; K21.9 Gastro-esophageal reflux disease without esophagitis; F43.10 Post-traumatic stress disorder, unspecified; F32.9 Major depressive disorder, single episode, unspecified; Z72.0 Tobacco use; F12.10 Cannabis abuse, uncomplicated; Z79.899 Other long term (current) drug therapy; Z88.1 Allergy status to other antibiotic agents; Z88.8 Allergy status to other drugs, medicaments and biological substances
CPT/HCPCS: 71046; 71275; 80048; 80076; 82550; 82553; 83690; 84443; 85025; 85379; 85610; 85730; 86140; 93005; 93041; 93971; 94760; 96374; 99285; J1885; Q9967

== ENCOUNTER → 2019-03-31 | Outpatient (CLI) | payer OTHER ==
[~2019-03-31] MED LIST changes: +NORC1TAB7 PO
[2019-03-31 10:23] LABS: ALBUMIN 3.3 GM/DL (3.2-5.2); BLOOD UREA NITROGEN 11 MG/DL (7-18); CALCIUM LEVEL 8.7 MG/DL (8.5-10.1); CARBON DIOXIDE LEVEL 32 MEQ/L (21-32); CHLORIDE LEVEL 106 MEQ/L (98-107); CHOLESTEROL LEVEL 199 MG/DL (<200); CHOLESTEROL RISK RATIO 4.061 (<5); CREATININE FOR GFR 0.72 MG/DL (0.55-1.30); FREE T4 1.18 NG/DL (0.76-1.46); GLOMERULAR FILTRATION RATE > 60.0 (>58); GLUCOSE, FASTING 96 MG/DL (70-100); HDL CHOLESTEROL 49 MG/DL (>40); LDL CHOLESTEROL 132 MG/DL (<100); MAGNESIUM LEVEL 1.9 MG/DL (1.8-2.4); NON-HDL-C 150 MG/DL; PHOSPHORUS LEVEL 3.1 MG/DL (2.5-4.9); POTASSIUM SERUM 4.4 MEQ/L (3.5-5.1); SODIUM LEVEL 141 MEQ/L (136-145); THYROID STIMULATING HORMONE 0.879 uIU/ML (0.358-3.740); TRIGLYCERIDES LEVEL 91 MG/DL (<150)
[2019-03-31 10:50] LABS: HEMOGLOBIN A1c 6.4 %
== END ==
LOC: M WUC 08:24
PROVIDERS: ATTEND Nurse Practitioner Family
DX: F32.9 Major depressive disorder, single episode, unspecified (principal); Z13.228 Encounter for screening for other metabolic disorders; I10 Essential (primary) hypertension

== ENCOUNTER → 2019-04-07 | Outpatient (CLI) | payer OTHER ==
[~2019-04-07] MED LIST changes: +LISI10TA4 PO; -NORT50CA; +VENL37.598 PO; +VENTAER INH; +VITMTA PO
[2019-04-07 14:26] LABS: PLATELET COUNT, AUTOMATED 440 10^3/uL (150-450)
[2019-04-07 14:36] LABS: INR 0.97; PROTHROMBIN TIME 12.6 SECONDS (11.8-14.0)
[2019-04-07 14:37] LABS: PARTIAL THROMBOPLASTIN TIME 32.4 SECONDS (25.0-38.4)
== END ==
LOC: M WUC 11:15
PROVIDERS: ATTEND Internal Medicine Pulmonary Disease
DX: R91.1 Solitary pulmonary nodule (principal)

== ENCOUNTER → 2019-04-13 | Outpatient (CLI) | payer OTHER ==
[~2019-04-13] MED LIST changes: +ACETAMINOPHEN 325 MG TAB As Ordered ONE; +LIDOCAINE 1% MDV 20ML VIAL As Ordered ONE
--- NOTE | 2019-04-13 11:18 | REP ---
CHEST X-RAY: Two views. HISTORY: Patient status post CT guided needle biopsy left upper lobe nodule. Rule out pneumothorax. FINDINGS: There is no evidence of pneumothorax on either side. There is a hazy opacity in the left upper perihilar region. The lungs are well inflated and clear. Pleural angles are sharp. Heart size is normal. IMPRESSION: No complication is identified. Electronically Signed by Garrett Sue MD 04/13/2019 04:48 P
[2019-04-13 12:25] VITALS: BP 160/72
--- NOTE | 2019-04-13 13:22 | REP ---
CT-guided left upper lobe lung biopsy The procedure is performed by SEBASTIEN Frederick, under the direct supervision of Dr. Sue. The patient has a history of a 1.6 cm round nodule in the upper aspect of the lung with spiculated borders on a CT ANGIO chest dated 03/12/2019. The risks and benefits of the procedure were explained to the patient and informed consent was obtained both orally and written. Directly prior to the start of the procedure, a formal timeout was done in the exam room. The left upper lobe nodule was localized using CT guidance. Skin was prepped and draped in the usual sterile fashion. 10 ml of 1% lidocaine was used as a local anesthetic. Using CT guidance a 19/20 gauge coaxial needle biopsy system was inserted and advanced into the nodule. 3 core biopsy samples were obtained and sent to the lab. CT images obtained directly after the biopsy show no evidence of pneumothorax. After the appropriate amount of monitored convalescence the patient was discharged from the department. Reviewed by SEBASTIEN Valadez 04/13/2019 12:30 P Electronically Signed by Garrett Sue MD 04/13/2019 01:14 P
== END ==
LOC: M IRPRO 08:39
DX: D14.32 Benign neoplasm of left bronchus and lung (principal)

== ENCOUNTER → 2019-04-20 | Outpatient (CLI) | payer OTHER ==
[~2019-04-20] MED LIST changes: -ACETAMINOPHEN 325 MG TAB As Ordered ONE; -LIDOCAINE 1% MDV 20ML VIAL As Ordered ONE
== END ==
LOC: M SMT 14:43
PROVIDERS: ATTEND Internal Medicine Pulmonary Disease
DX: R91.1 Solitary pulmonary nodule (principal)

== ENCOUNTER → 2019-05-25 | Outpatient (CLI) | payer OTHER ==
[2019-05-25 10:16] LABS: HEMOGLOBIN A1c 5.8 %
[2019-05-25 10:50] LABS: ALBUMIN 3.7 GM/DL (3.2-5.2); ALT/SGPT 25 U/L (12-78); BILIRUBIN,TOTAL 0.3 MG/DL (0.2-1.0); BLOOD UREA NITROGEN 13 MG/DL (7-18); CALCIUM LEVEL 9.4 MG/DL (8.5-10.1); CARBON DIOXIDE LEVEL 30 MEQ/L (21-32); CHLORIDE LEVEL 103 MEQ/L (98-107); CHOLESTEROL LEVEL 182 MG/DL (<200); CHOLESTEROL RISK RATIO 3.714 (<5); CREATININE FOR GFR 0.52 MG/DL (0.55-1.30); FREE T4 1.17 NG/DL (0.76-1.46); GLOMERULAR FILTRATION RATE > 60.0 (>58); GLUCOSE, FASTING 93 MG/DL (70-100); HDL CHOLESTEROL 49 MG/DL (>40); LDL CHOLESTEROL 115 MG/DL (<100); NON-HDL-C 133 MG/DL; POTASSIUM SERUM 4.3 MEQ/L (3.5-5.1); SODIUM LEVEL 140 MEQ/L (136-145); TOTAL PROTEIN 7.7 GM/DL (6.4-8.2); TRIGLYCERIDES LEVEL 89 MG/DL (<150)
[2019-05-28 00:07] LABS: INSULIN LEVEL 2.9 uIU/mL (2.6-24.9); ISLET CELL ANTIBODIES Negative (Neg:<1:1)
== END ==
LOC: M WUC 08:12
PROVIDERS: ATTEND Nurse Practitioner Family
DX: R73.09 Other abnormal glucose (principal); E78.5 Hyperlipidemia, unspecified; I10 Essential (primary) hypertension

== ENCOUNTER → 2019-06-25 | Outpatient (REF) | payer OTHER ==
[~2019-06-25] MED LIST changes: +OMEP40CA97 PO
[2019-06-25 11:46] LABS: BASO % 0.4 % (0.0-1.0); EOS # 0.1 10^3/uL (0.0-0.5); EOS % 1.1 % (0.0-3.0); HEMATOCRIT 42.2 % (36.0-47.0); HEMOGLOBIN 13.8 g/dl (12.0-15.5); LYMPH # 2.2 10^3/uL (1.5-5.0); MEAN CORPUSCULAR HEMOGLOBIN 31.2 pg (27.0-33.0); MEAN CORPUSCULAR HGB CONC 32.7 g/dl (32.0-36.5); MEAN CORPUSCULAR VOLUME 95.5 fl (80.0-96.0); MONO # 0.6 10^3/uL (0.0-0.8); MONO % 6.3 % (0.0-5.0); NEUTROPHILS # 7.1 10^3/uL (1.5-8.5); NEUTROPHILS % 69.9 % (36.0-66.0); PLATELET COUNT, AUTOMATED 443 10^3/uL (150-450); RED BLOOD COUNT 4.42 10^6/uL (4.00-5.40); WHITE BLOOD COUNT 10.1 10^3/uL (4.0-10.0)
[2019-06-25 12:14] LABS: ERYTHROCYTE SEDIMENTATION RATE 43 mm/hr (0-20)
[2019-06-25 12:23] LABS: ALBUMIN 3.6 GM/DL (3.2-5.2); ALT/SGPT 20 U/L (12-78); BILIRUBIN,TOTAL 0.3 MG/DL (0.2-1.0); BLOOD UREA NITROGEN 10 MG/DL (7-18); C REACTIVE PROTEIN QUANTITATIV 1.19 MG/DL (0.00-0.30); CALCIUM LEVEL 9.2 MG/DL (8.5-10.1); CARBON DIOXIDE LEVEL 29 MEQ/L (21-32); CHLORIDE LEVEL 103 MEQ/L (98-107); CREATININE FOR GFR 0.53 MG/DL (0.55-1.30); GLOMERULAR FILTRATION RATE > 60.0 (>58); GLUCOSE, FASTING 91 MG/DL (70-100); POTASSIUM SERUM 3.8 MEQ/L (3.5-5.1); SODIUM LEVEL 140 MEQ/L (136-145); TOTAL PROTEIN 7.5 GM/DL (6.4-8.2)
[2019-06-29 00:06] LABS: HISTOPLASMA GAL'MANNAN AG UR <0.5 (<0.5 ng/mL); HISTOPLASMOSIS ANTIBODY Negative (Neg:<1:1)
== END ==
LOC: M SFHCPLAZ 09:54
PROVIDERS: ATTEND Internal Medicine Infectious Disease
DX: B38.9 Coccidioidomycosis, unspecified (principal)

== ENCOUNTER → 2019-10-01 | Outpatient (CLI) | payer OTHER ==
[~2019-10-01] MED LIST changes: +OMEP1CAP73 PO; -OMEP20CA4 PO; +RISP2TAB PO
[2019-10-01 14:50] LABS: ABG BASE EXCESS 4.7 (-2.0-2.0); ABG HCO3 30.8 MEQ/L (22.0-26.0); ABG PARTIAL PRESSURE CO2 51.6 mmHg (35.0-45.0); ABG PARTIAL PRESSURE O2 74.8 mmHg (75.0-100.0); ABG STANDARD HCO3 28.6 MEQ/L (22.0-26.0); ABG TOTAL CO2 32.4 MEQ/L (22.0-29.0); ABG pH (ARTERIAL) 7.394 UNITS (7.350-7.450)
[2019-10-01 14:53] LABS: HEMATOCRIT 46.5 % (36.0-47.0); HEMOGLOBIN 14.3 g/dl (12.0-15.5); MEAN CORPUSCULAR HEMOGLOBIN 29.1 pg (27.0-33.0); MEAN CORPUSCULAR HGB CONC 30.8 g/dl (32.0-36.5); MEAN CORPUSCULAR VOLUME 94.7 fl (80.0-96.0); PLATELET COUNT, AUTOMATED 423 10^3/uL (150-450); RED BLOOD COUNT 4.91 10^6/uL (4.00-5.40); WHITE BLOOD COUNT 10.9 10^3/uL (4.0-10.0)
[2019-10-01 15:03] LABS: INR 1.02; PROTHROMBIN TIME 13.1 SECONDS (11.8-14.0)
[2019-10-01 15:04] LABS: PARTIAL THROMBOPLASTIN TIME 30.4 SECONDS (25.0-38.4)
[2019-10-01 15:09] LABS: APPEARANCE, URINE CLEAR (CLEAR); BACTERIA, URINE AUTO 1+ (NEGATIVE); BILIRUBIN, URINE AUTO NEGATIVE (NEGATIVE); BLOOD, URINE BLOOD 1+ (NEGATIVE); COLOR, URINE YELLOW (YELLOW); GLUCOSE, URINE (UA) AUTO NEGATIVE (NEGATIVE); KETONE, URINE AUTO NEGATIVE (NEGATIVE); LEUKOCYTE ESTERASE, URINE AUTO NEGATIVE (NEGATIVE); NITRITE, URINE AUTO NEGATIVE (NEGATIVE); PROTEIN, URINE AUTO NEGATIVE (NEGATIVE); RBC, URINE AUTO 2 /HPF (0-3); SQUAMOUS EPITHELIAL CELL UR AU 1 /HPF (0-6); UROBILINOGEN, URINE AUTO 0.2 mg/dL (0.0-2.0); WBC, URINE AUTO 1 /HPF (0-3)
[2019-10-01 15:18] LABS: BLOOD UREA NITROGEN 9 MG/DL (7-18); CALCIUM LEVEL 8.9 MG/DL (8.5-10.1); CARBON DIOXIDE LEVEL 34 MEQ/L (21-32); CHLORIDE LEVEL 102 MEQ/L (98-107); CREATININE FOR GFR 0.64 MG/DL (0.55-1.30); GLOMERULAR FILTRATION RATE > 60.0 (>51); GLUCOSE, FASTING 99 MG/DL (70-100); POTASSIUM SERUM 3.3 MEQ/L (3.5-5.1); SODIUM LEVEL 137 MEQ/L (136-145)
== END ==
LOC: M ADMPAT 13:12
PROVIDERS: ATTEND Thoracic Surgery (Cardiothoracic Vascular Surgery)
DX: R91.1 Solitary pulmonary nodule (principal); R91.8 Other nonspecific abnormal finding of lung field

== ENCOUNTER 2020-06-26 15:19 | Emergency (ER) | payer MEDICARE, OTHER, MEDICAID ==
[~2020-06-26] VITALS: Ht 170.2 cm; Wt 113.4 kg
[2020-06-26 15:19] VITALS: BP 140/90
[2020-06-26] MEDS ORDERED: METH1TAB40 PO (15:50)
[2020-06-26] MEDS ORDERED: DIAZ5TAB PO (15:50)
[2020-06-26] MEDS ORDERED: TRAZ-257 PO (15:50)
[2020-06-26] MEDS ORDERED: VIIB20TA PO (15:50)
[2020-06-26] MEDS ORDERED: KETOROLAC 60MG 2ML VIAL IM ONE (16:30)
[2020-06-26] MEDS ORDERED: methocarbamoL 750 MG TAB PO ONE (16:30)
== END 2020-06-26 16:26 | disposition left against medical advice (07) ==
LOC: M ED 15:19
DX: M54.9 Dorsalgia, unspecified (principal); J45.909 Unspecified asthma, uncomplicated; J44.9 Chronic obstructive pulmonary disease, unspecified; F33.9 Major depressive disorder, recurrent, unspecified; F41.9 Anxiety disorder, unspecified; F43.10 Post-traumatic stress disorder, unspecified; G47.33 Obstructive sleep apnea (adult) (pediatric); K21.9 Gastro-esophageal reflux disease without esophagitis; K44.9 Diaphragmatic hernia without obstruction or gangrene; E66.9 Obesity, unspecified; Z78.0 Asymptomatic menopausal state; Z79.899 Other long term (current) drug therapy; Z88.1 Allergy status to other antibiotic agents; Z88.5 Allergy status to narcotic agent; F17.210 Nicotine dependence, cigarettes, uncomplicated

== ENCOUNTER → 2020-06-29 | Outpatient (CLI) | payer MEDICARE, MEDICAID ==
[~2020-06-29] MED LIST changes: +DIAZ5TAB PO; +METH1TAB40 PO; +TRAZ-257 PO; +VIIB20TA PO
--- NOTE | 2020-07-06 02:32 | ECWPNPC ---
PATIENT NAME: AVTAR CHADWICK : 1970 GENDER: FEMALE VISIT DATE: 06/29/2020 DISCHARGE DATE: 06/29/20 1336 VISIT LOCKED DATE TIME: PHYSICIAN: TRE ROYAL PHYSICIAN PAGER NO: ACTIVE RESOURCE: TRE ROYAL REASON FOR APPOINTMENT 1. RADICULAR PAIN HISTORY OF PRESENT ILLNESS DEPRESSION SCREENING: PHQ-9 LITTLE INTEREST OR PLEASURE IN DOING THINGSNEARLY EVERY DAY FEELING DOWN, DEPRESSED, OR HOPELESSNEARLY EVERY DAY TROUBLE FALLING OR STAYING ASLEEP, OR SLEEPING TOO MUCHNEARLY EVERY DAY FEELING TIRED OR HAVING LITTLE ENERGYNEARLY EVERY DAY POOR APPETITE OR OVEREATING NEARLY EVERY DAY FEELING BAD ABOUT YOURSELF-OR THAT YOU ARE A FAILURE OR HAVE LET YOURSELF OR YOUR FAMILY DOWN NEARLY EVERY DAY TROUBLE CONCENTRATING ON THINGS, SUCH READING THE NEWSPAPER OR WATCHING TELEVISION NEARLY EVERY DAY MOVING OR SPEAKING SO SLOWLY THAT OTHER PEOPLE COULD HAVE NOTICED. OR THE OPPOSITE- BEING SO FIDGETY OR RESTLESS THAT YOU HAVE BEEN MOVING AROUND A LOT MORE THAN USUALNEARLY EVERY DAY THOUGHTS THAT YOU WOULD BE BETTER OFF , OR OF HURTING YOURSELF IN SOME WAY?SEVERAL DAYS(CONSIDER SUICIDE ASSESSMENT RISK) TOTAL SCORE:25 INTERPRETATIONSEVERE DEPRESSION PHQ-2 (2015 EDITION) LITTLE INTEREST OR PLEASURE IN DOING THINGS?NEARLY EVERY DAY FEELING DOWN, DEPRESSED, OR HOPELESS?NEARLY EVERY DAY TOTAL SCORE6 GENERAL: HERE FOR INITIAL CONSULT PER REFERRAL OF [facility]. HISTORY OF CHRONIC LOWER EXTREMITY PAIN. 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 PAIN IS DESCRIBED DISABLING. CURRENTLY USING NSLA-ABQ-CLACKDU MEDICATIONS IN EXCESS OF SAFE [place] FOR KIDNEY AND LIVER AND WE DISCUSSED MEDICATION OPTIONS. DENIES BOWEL OR BLADDER INCONTINENCE. DENIES RECENT ILLNESS OR SUDDEN WEIGHT LOSS. SUFFERS FROM SEVERE DEPRESSION AND ANXIETY. STATES SHE SEES A COUNSELOR ON A REGULAR BASIS. DENIES SUICIDAL OR HOMICIDAL IDEATIONS. - - - - - -. FALL RISK SCREENING: SCREENING :NO FALLS REPORTED IN THE LAST YEAR PAIN SCREENING: PATIENT HAS A COMPLAINT OF ACUTE OR CHRONIC PAIN :YES LOCATION OF PAIN:LEG(S) INTENSITY OF PAIN (SCALE OF 1 TO 10):8 WHAT DOES YOUR PAIN FEEL LIKE:ACHING, BURNING, SHARP, STABBING, THROBBING, SHOOTING DURATION:CONTINOUS, CONSTANT PAIN IS INCREASED BY:OTHERS LYING DOWN PAIN IS DECREASED BY:SITTING, OTHERS BATHTUB TREATMENT/MEDICATIONS USED TO MANAGE PAIN:OTC PAIN RELIEVERS, NSAIDS LEVEL OF RELIEF FROM PAIN TREATMENTS IN THE PAST:25% PAIN HAS INTERFERED WITH THE FOLLOWING:BATHING/DRESSING, WALKING ABILITY, HOUSEWORK, SLEEP, TRANSPORTATION, TOILETING NURSING NOTE: - - - - - -. PAIN CENTER INTAKE QUESTIONS: DO YOU HAVE A HISTORY OF MRSA? :NO DO YOU TAKE A BLOOD THINNERS? :NO DO YOU HAVE ANY BLEEDING DISORDERS? :NO ANY NEW NUMBNESS OR WEAKNESS IN YOUR LEGS OR ARMS? :YES ANY PACEMAKER,DEFIBRILLATOR, OR DORSAL COLUMN STIMULATOR? :NO DO YOU HAVE ANY RASHES OR OPEN SORES? :NO ARE YOU ALLERGIC TO IV DYE? :NO ARE YOU DIABETIC? :NO ANY NEW PROBLEMS WITH YOUR MEDICATIONS? :NO HAVE YOU RECEIVED A VACCINE IN THE PAST 30 DAYS? :NO DO YOU PLAN TO RECEIVE A VACCINE IN THE NEXT 21 DAYS? :NO DO YOU NEED ANY PRESCRIPTION? :YES PT ASKING FOR PAIN MEDS DO YOU TAKE ANY IMMUNOSUPPRESSIVE MEDICATIONS? :NO CURRENT MEDICATIONS TAKING FLONASE SENSIMIST 27.5 MCG/SPRAY SUSPENSION 1 SPRAY IN EACH NOSTRIL NASALLY ONCE A DAY TAKING RISPERIDONE 2 MG TABLET TAKE ONE TABLET BY MOUTH AT BEDTIME ORALLY ONCE A DAY TAKING IBUPROFEN 600 MG TABLET 1 TABLET ORALLY THREE TIMES A DAY, PRN TAKING VENTOLIN HFA 90 MCG/ACT AEROSOL SOLUTION 2 PUFFS NEEDED INHALATION EVERY 6 HRS TAKING OMEPRAZOLE 20 MG CAPSULE DELAYED RELEASE 2 CAPSULES ORALLY ONCE A DAY TAKING LISINOPRIL 20 MG TABLET 1 TABLET ORALLY ONCE A DAY NOT-TAKING SHOWER CHAIR WITHOUT WHEELS DIRECTED M47.81 DAILY USE NOT-TAKING FLUTICASONE PROPIONATE 50 MCG/ACT SUSPENSION 1 SPRAY IN EACH NOSTRIL NASALLY ONCE A DAY NOT-TAKING HYDROXYZINE HCL 25 MG TABLET 1 TABLET NEEDED ORALLY DAILY NOT-TAKING CITALOPRAM HYDROBROMIDE 20 MG TABLET 1 TABLET ORALLY ONCE A DAY NOT-TAKING KNEE COMPRESSION SLEEVE/L/XL 1 MISCELLANEOUS DIRECTED R60.0 DAILY NOT-TAKING NORTRIPTYLINE HCL 50 MG CAPSULE 1 CAPSULE ORALLY ONCE A DAY NOT-TAKING ANKLE BRACE/FLEXIBLE STAYS LG 1 MISCELLANEOUS DIRECTED M25.57 DAILY NOT-TAKING OMEPRAZOLE 40 MG CAPSULE DELAYED RELEASE 1 CAPSULE ORALLY ONCE A DAY NOT-TAKING CHANTIX STARTING MONTH ANDREA 0.5 MG X 11 & 1 MG X 42 TABLET DIRECTED ORALLY ONCE DAILY MEDICATION LIST REVIEWED AND RECONCILED WITH THE PATIENT PAST MEDICAL HISTORY ACID REFLUX/HIATAL HERNIA HYPERTENSION DEPRESSION/ANXIETY NEPHROLITHIASIS GENITAL HERPES VARICOSITIES AND SUPERFICIAL BLOOD CLOTS (2011) W/DEPO VASOMOTOR SYMPTOMS, MOOD SWINGS INSOMNIA FAMILY HX COLON CANCER (MOTHER AT 57) 2006 SQUAMOUS CIS, KAYLIE 3, HPV EFFECT SURGICAL MENOPAUSE 2012, NO HRT RA- [facility] SHAHANA WHITMORE. [id number]. TRIED AND FAILED METHOTREXATE, PLAQUENIL, REMICADE SLEEP APNEA WITH CPAP PTSD 04/2017 COLONOSCOPY: HYPERPLASTIC POLYP 25 CM TO RECTUM POLYPECTOMY -DR. GOETZ REPEAT IN 04/2022 INTERNAL HEMARROIDS C DIVERTICULOSIS IN THE RECTO SIGMOID COLON. LUMBAR FUSION/LAMINECTOMY- [facility]. 03/2017 MRI SPINE: INTEVAL RESOLUTION OF THE INFLAMMTORY CHANGE LIKELY POST OPERATIVE AT L4-5 S/P L4-5 POSTERIOR SPINAL FUSION AND L4-5 LAMINECTOMIES. NEW MILD DISC BULGING S SPINAL /FORAMINALS TENOSIS OR NERVE IMPINGEMENT. MILD LEFT NEURAL FORAMINAL STENOSIS SECONDARY TO A NEW, INTRAFORAMINAL DISC PROTRUSION. S NERVE ROOT IMPINGEMENT L UPPER LOBE NODUDE -03/2019 CT LUNG - DR. GRANADOS NEEDLE BIPSY IN 04/2019 RESULT C NECROTIZING GRANULOMA - TB SCREENING IFG HYPERLIPIDEMIA ALLERGIES TETRACYCLINE HCL: RASH - ALLERGY SURGICAL HISTORY HYSTERECTOMY 03/2014 LAMINECTOMY L5 S1-RODS AND SCREWS 05/2010 LEEP PROCEDURE 04/2007 FAMILY HISTORY FATHER: ALIVE 62 YRS, ESTRANGED FROM PT MOTHER: 56 YRS, COLON CANCER W/METS TO LIVER SIBLINGS: ALIVE 40 YRS SON(S): ALIVE 21 YRS DAUGHTER(S): ALIVE, AGES 23,10 1 BROTHER(S) - HEALTHY. 1 SON(S) , 2 DAUGHTER(S) - HEALTHY. DENIES BREAST, COLON OR OVARIAN CANCERS. SOCIAL HISTORY GENERAL: TOBACCO USE ARE YOU A:CURRENT SMOKER ARE YOU INTERESTED IN QUITTING?NOT READY TO QUIT COUNSELED THE PATIENT ON SMOKING EFFECTS, EDUCATION [id number]/27/2020 HOW MANY CIGARETTES A DAY DO YOU SMOKE?11-20 PATIENT COUNSELED ON THE DANGERS OF TOBACCO USE AND URGED TO QUIT:06/28/2020 LATEX QUESTIONNAIRE LATEX ALLERGY : HAVE YOU EVER DEVELOPED ANY TYPE OF REACTION AFTER HANDLING LATEX PRODUCTS SUCH RUBBER GLOVES, CONDOMS, DIAPHRAGMS, BALLOONS, SOCKS, OR UNDERWEAR?NO LATEX ALLERGY : HAVE YOU EVER DEVELOPED ANY TYPE OF REACTION DURING OR AFTER DENTAL APPOINTMENT, VAGINAL/RECTAL EXAMINATION, SURGICAL PROCEDURE, OR ANY OTHER EXPOSURE?NO LATEX RISK : HAVE YOU EVER HAD ANY DIFFICULTY BREATHING OR HIVES AFTER EATING OR HANDLING ANY FRUITS, OR VEGETABLES; SUCH KIWI, BANANAS, STONE FRUITS, OR CHESTNUTSNO LATEX RISK : DO YOU HAVE A PREVIOUS PERSONAL HISTORY OF MORE THAN NINE SURGERIES, SPINA BIFIDA, OR REPEATED CATHERIZATIONS? NO LATEX RISK : ARE YOU FREQUENTLY EXPOSED TO LATEX PRODUCTS IN YOUR OCCUPATION?NO DATE ASKED : 06/29/2020 ALCOHOL SCREENING POINTS: 0, INTERPRETATION: NEGATIVE. RECREATIONAL DRUG USE DRUG USE?NO CAFFEINE CAFFEINE USE?YES 2 CUPS/DAY SEXUAL HX HAD SEX IN THE LAST 12 MONTHS (VAGINAL, ORAL, OR ANAL)?YES WITHMEN ONLY PREVENTION STRATEGIES DISCUSSED:CONDOMS USE PROTECTION?YES HOW OFTEN?ALL OF THE TIME LMP:2013 HAVE YOU EVER HAD AN STD?NO HIV / HEP-C SCREENING HIV TEST OFFERED TO PATIENT:YES DATE OFFERED:03/17/2019 TEST ACCEPTED:NO HEP-C TEST OFFERED TO PATIENT:YES DATE OFFERED:03/17/2019 REASON:PATIENT DECLINED TEST ACCEPTED:NO REASON:PATIENT DECLINED BROCHURE PROVIDED TO PATIENTYES BAPTISM NO HINDU BELIEFS THAT WOULD IMPACT HEALTH CARE. LANGUAGE YORUBA. EDUCATION LEVEL OF EDUCATION:HIGH SCHOOL 10TH GRADE LEARNING BARRIERS / SPECIAL NEEDS BARRIERS TO LEARNING?NO HEARING IMPAIRED?NO VISION IMPAIRED?YES COGNITIVELY IMPAIRED?NO :CORRECTIVE LENSES READINESS TO LEARN?YES LEARNING PREFERENCES?NO LEARNING CAPABILITIES PRESENT?YES DOMESTIC VIOLENCE DO YOU FEEL SAFE IN YOUR ENVIRONMENT?YES OCCUPATION: UNEMPLOYED. DIET: REGULAR, LOW SODIUM. EXERCISE: DAILY, WALKS PAULO DUE TO BACK PAIN. MARITAL STATUS: .. OTHERS AT HOME: ROOMMATE. PAIN CLINIC PFS, CLERGY, PUBLIC HEALTH REFERRALS HAS THE PATIENT BEEN EDUCATED REGARDING HIS/HER PLAN OF CARE?YES HAS THE PATIENT BEEN EDUCATED REGARDING PAIN, THE RISK FOR PAIN, THE IMPORTANCE OF EFFECTIVE PAIN MANAGEMENT, AND THE PAIN ASSESSMENT PROCESS?YES HOUSING: OWNS HOME. ADVANCE DIRECTIVE ADVANCE DIRECTIVE DISCUSSED WITH PATIENT:YES DECLINED, DECLINED PAPERWORK HOSPITALIZATION/MAJOR DIAGNOSTIC PROCEDURE BACK SURGERY 05/2010 REVIEW OF SYSTEMS REVIEWED BY: PROVIDER: TRE GALVAN . CONSTITUTIONAL: ANY CHANGE IN YOUR MEDICAL CONDITION? NO . CHILLS NO . FEVER NO . INFECTION: DO YOU HAVE NEW INFECTIONS? NO . DO YOU HAVE HISTORY OF MRSA? NO . MUSCULOSKELETAL: ANY UNUSUAL JOINT PAIN OR SWELLING NOT MENTIONED YES PT REPORTS INCREASED PAIN IN UPPER BACK AND SHOULDERS, PRESENTED TO THE ED A WEEK AGO AND WAS TREATED WITH STEROIDS. STILL CONTINUES WITH PAIN AT THIS TIME. . GASTROENTEROLOGY: ANY NEW CHANGE IN BOWEL CONTROL? NO . GENITOURINARY: ANY NEW CHANGE IN BLADDER CONTROL? YES PT REPORTS URGENCY AND OCCASIONAL INCONTINENCE. . IS THERE A CHANCE YOU COULD BE ? NO . HEMATOLOGY/LYMPH: DO YOU TAKE ANY BLOOD THINNERS? (FOR EXAMPLE- COUMADIN, PLAVIX, AGGRENOX, PLATEL, PRADAXA, OR XARELTO) NO . WHEN WAS YOUR LAST DOSE? DATE: TIME: . NEUROLOGY: HAVE YOU FALLEN IN THE PAST 12 MONTHS? NO . OTHER NEW NUMBNESS OR PAIN PATTERNS NOT MENTIONED NO . CARDIOLOGY: DO YOU HAVE A PACEMAKER OR DEFIBRILLATOR? NO . RESPIRATORY: HAVE YOU BEEN SICK IN THE PAST WEEK? NO . FEVER NO . FLU LIKE SYMPTOMS? NO . COUGH NO . INTEGUMENTARY: DO YOU HAVE ANY RASHES OR OPEN SORES? NO . ALLERGIC/IMMUNO: ARE YOU ALLERGIC TO IV DYE? NO . ANY NEW ALLERGIES? NO . PSYCHIATRIC: DO YOU HAVE THOUGHTS OF HURTING YOURSELF OR SOMEONE ELSE? NO . ARE YOU ABUSED, NEGLECTED, OR IN AN UNSAFE ENVIRONMENT? NO . ENDOCRINOLOGY: ARE YOU DIABETIC? NO . OTHER: DO YOU NEED ANY PRESCRIPTIONS? NO . IF YES, PLEASE LIST: ____ . ANY NEW PROBLEMS WITH YOUR MEDICATIONS? NO . WHEN DID YOU LAST EAT? ____ . WHEN DID YOU LAST DRINK? ____ . WHAT DID YOU LAST DRINK? ____ . NAME OF PERSON DRIVING YOU HOME? ____ . DO YOU HAVE ANY OTHER QUESTIONS OR CONCERNS NO . VITAL SIGNS WT 248.4 LBS, HT 67 IN, BMI 38.90 INDEX, BP 181/80 MM HG, HR 115 /MIN, RR 18 /MIN, TEMP 97.6 F, OXYGEN SAT % 95%, SAFE IN ENV? (Y/N) YES, NA INITIALS AW 1258, REVIEWED BY: ANGELA. EXAMINATION GENERAL EXAMINATION: HEENT:HEAD:, NORMOCEPHALIC, EYES:, EYES NORMAL, NOSE:, NOSE CLEAR, THROAT: NORMAL. LUNGS:LUNG SOUNDS ARE CLEAR. HEART:HEART RATE REGULAR. ABDOMEN:SOFT AND NOT TENDER, NON-DISTENDED. MUSCULOSKELETAL:*. LUMBAR:MUSCLE STRENGTH TESTING 3/5 BILATERAL. PALPATION: POSITIVE FOR PAIN OVER L/S SPINE. POSITIVE FOR PAIN OVER L/S PARSPINALS.POINT TENDERNESS NOTED OVER BILAT. SIJ.. CERVICAL:POSITIVE FOR PAIN WITH PALPATION OF CERVICAL SPINE. POSITIVE FOR PAIN WITH PALPATION OF CERVICAL PARASPINALS. POSITIVE FOR PAIN WITH PALPATION OF TRAPEZIUS BILAT. SKIN:NORMAL, NO RASH. NEUROLOGIC EXAM:ALERT AND ORIENTED X 3, DTRS 1-2+ IN ALL 4 EXTREMITIES, DENIES UPPER EXTREMETIES SENSORY LOSS, DENIES LOWER EXTREMETIES SENSORY LOSS. ASSESSMENTS POST LAMINECTOMY SYNDROME - M96.1 (PRIMARY) INFLAMMATORY ARTHROPATHY - M19.90 TREATMENT POST LAMINECTOMY SYNDROME START TRAMADOL HCL TABLET, 50 MG, 1 TABLET NEEDED, ORALLY, EVERY 6 HOURS WHEN NECESSARY FOR PAIN MDD OF 4 #45 TABLETS SHOULD LAST 30 DAYS, 30 DAYS, 45, REFILLS 1 NOTES: ISTOP REGISTRY REVIEWED AND DEMONSTRATES COMPLLIANCE. , THE [facility] NARCOTIC AGREEMENT WAS REVIEWED AND SIGNED TODAY BY THE PATIENT. SEE ATTACHED DOCUMENT FOR FULL DETAILS; SPECIFIC ISSUES WERE REVIEWED: 1) KEEP PAIN MEDS IN THEIR ORIGINAL BOTTLES AND ANY WEEKLY PLANNERS ARE TO BE BROUGHT TO THE PAIN CENTER AT EVERY VISIT. 2) THE PATIENT IS NOT TO INCREASE DOSING OR TIMING OF THEIR PAIN MEDICATION WITHOUT SPECIFIC DIRECTION OF THEIR PAIN CENTERPROVIDER (NOT ER OR OTHER PROVIDERS). 3) ALL PAIN MEDS ARE TO BE KEPT SECURED, IN A LOCKED BOX. 4) NO PAIN MEDS ARE TO BE SHARED WITH ANY OTHER PERSON FOR ANY REASON. 5) NO PAIN MEDS MAY BE TAKEN FROM ANY FRIENDS OR RELATIVES FOR ANY REASON 6) NO MEDS OR SUBSTANCES WHICH ARE NOT LEGAL ARE TO BE USED- NO MARIJUANA, NO COCAINE, AMPHETAMINES, HEROIN, OR OTHERS ARE EVER TO BE USED. 7)URINE TESTING IS DONE TO ACCOUNT FOR MEDS AND SUBSTANCES BEING TAKEN AND WILL BE DONE RANDOMLY. , RISKS OF NARCOTIC/OPIOD MEDICATIONS INCLUDES BUT IS NOT LIMITED TO RISK OF DEPENDANCE/DEVELOPMENT OF ADDICTION, MOOD DISTURBANCE AND DEPRESSION, OSTEOPOROSIS, HORMONAL AND LABIDAL CHANGES, RESPIRATORY DEPRESSION AND . PATIENT IS ADVISED NOT TO DRIVE OR DRINK ALCOHOL WHILE ON THESE MEDICATIONS. OTHERS NOTES: 06/28/20 MIKE FINLEY RN BSN. PROCEDURE CODES FA211 ESTABILISHED PATIENT THE [facility] F[facility] CHARGE DISPOSITION & COMMUNICATION FOLLOW UP 2 MONTHS (REASON: MEDICATION MANAGEMENT/U TOX) ELECTRONICALLY SIGNED BY MANDY COFFEY ON 07/05/2020 AT 02:32 PM EST DISCLAIMER : THIS IS A VISIT SUMMARY EXTRACTED FROM THE [employer] CHART. IT IS NOT A COPY OF THE [employer] PROGRESS NOTE. MARÍA
== END ==
LOC: M PAIN 13:00
PROVIDERS: ATTEND Nurse Practitioner Family
DX: M96.1 Postlaminectomy syndrome, not elsewhere classified (principal); M19.90 Unspecified osteoarthritis, unspecified site; K21.9 Gastro-esophageal reflux disease without esophagitis; K44.9 Diaphragmatic hernia without obstruction or gangrene; I10 Essential (primary) hypertension; F32.9 Major depressive disorder, single episode, unspecified; F41.9 Anxiety disorder, unspecified; G47.00 Insomnia, unspecified; F43.10 Post-traumatic stress disorder, unspecified; E78.5 Hyperlipidemia, unspecified; R73.01 Impaired fasting glucose; G47.30 Sleep apnea, unspecified; F17.210 Nicotine dependence, cigarettes, uncomplicated; Z79.899 Other long term (current) drug therapy; Z88.8 Allergy status to other drugs, medicaments and biological substances

== ENCOUNTER → 2021-01-16 | Outpatient (REF) | payer MEDICARE, MEDICAID ==
[~2021-01-16] MED LIST changes: +LISI10TA22 PO; -LISI10TA4 PO; +METH-1164 PO; -METH1TAB40 PO
[2021-01-16 13:23] LABS: BASO # 0.1 10^3/uL (0.0-0.2); BASO % 0.5 % (0.0-1.0); EOS # 0.1 10^3/uL (0.0-0.5); EOS % 0.9 % (0.0-3.0); HEMATOCRIT 48.1 % (36.0-47.0); LYMPH # 2.9 10^3/uL (1.5-5.0); LYMPH % 27.2 % (24.0-44.0); MEAN CORPUSCULAR HEMOGLOBIN 30.1 pg (27.0-33.0); MEAN CORPUSCULAR HGB CONC 31.2 g/dl (32.0-36.5); MEAN CORPUSCULAR VOLUME 96.6 fl (80.0-96.0); MONO # 0.8 10^3/uL (0.0-0.8); MONO % 7.4 % (2.0-8.0); NEUTROPHILS # 6.7 10^3/uL (1.5-8.5); NEUTROPHILS % 63.4 % (36.0-66.0); PLATELET COUNT, AUTOMATED 336 10^3/uL (150-450); RED BLOOD COUNT 4.98 10^6/uL (4.00-5.40); WHITE BLOOD COUNT 10.6 10^3/uL (4.0-10.0)
[2021-01-16 13:50] LABS: ALBUMIN 3.2 GM/DL (3.2-5.2); ALT/SGPT 14 U/L (12-78); BILIRUBIN,TOTAL 0.2 MG/DL (0.2-1.0); BLOOD UREA NITROGEN 8 MG/DL (7-18); CALCIUM LEVEL 9.2 MG/DL (8.5-10.1); CARBON DIOXIDE LEVEL 33 MEQ/L (21-32); CHLORIDE LEVEL 105 MEQ/L (98-107); CHOLESTEROL LEVEL 230 MG/DL (<200); CHOLESTEROL RISK RATIO 4.893 (<5); CREATININE FOR GFR 0.55 MG/DL (0.55-1.30); FREE T4 1.09 NG/DL (0.76-1.46); GLOMERULAR FILTRATION RATE > 60.0 (>51); GLUCOSE, FASTING 87 MG/DL (70-100); HDL CHOLESTEROL 47 MG/DL (>40); LDL CHOLESTEROL 157 MG/DL (<100); NON-HDL-C 183 MG/DL; POTASSIUM SERUM 4.4 MEQ/L (3.5-5.1); SODIUM LEVEL 141 MEQ/L (136-145); THYROID STIMULATING HORMONE 0.329 uIU/ML (0.358-3.740); TOTAL PROTEIN 7.2 GM/DL (6.4-8.2); TRIGLYCERIDES LEVEL 130 MG/DL (<150)
[2021-01-16 14:22] LABS: HEMOGLOBIN A1c 5.4 %
== END ==
LOC: M SFHCPLAZ 11:51
PROVIDERS: ATTEND Nurse Practitioner Family
DX: E78.5 Hyperlipidemia, unspecified (principal); R73.09 Other abnormal glucose; I10 Essential (primary) hypertension

== ENCOUNTER → 2021-01-31 | Outpatient (CLI) | payer MEDICARE, OTHER ==
[~2021-01-31] MED LIST changes: +ISOVUE-370 76% 100ML VIAL As Ordered ONE
--- NOTE | 2021-01-31 08:53 | REP ---
INDICATION: WILBERTO PULMONARY NODULE COMPARISON: 03/12/2019; PET-CT dated 07/14/2019 TECHNIQUE: Axial contrast enhanced images from the thoracic inlet to the upper abdomen with coronal and sagittal reformations using 75 ml Isovue 370 intravenous contrast material. This CT examination was performed using the following dose reduction techniques: Automated exposure control, adjustment of mA and/or kv according to the patient's size, and use of iterative reconstruction technique. FINDINGS: 14 mm noncalcified mass in the anterior left upper lobe (series 201; image 32) remains relatively stable and was inconclusive on PET-CT. The bilateral lung almonte are otherwise well aerated and without further acute consolidation, nodule or mass. No effusion. No pneumothorax. Tracheobronchial tree is patent. Mediastinal lymph nodes measuring up to 11 mm are again identified and unchanged. Atherosclerotic changes to the thoracic aorta and coronary arteries noted without aortic aneurysm/dissection or cardiomegaly. No pericardial effusion. Small to moderate hiatal hernia at the gastroesophageal junction noted. Limited upper abdomen demonstrates normal bilateral adrenal glands and evidence for prior cholecystectomy. IMPRESSION: 1. 14 mm noncalcified nodule within the left upper lobe appears relatively unchanged and was deemed inconclusive by PET-CT. 2. No new acute mediastinal or pleuroparenchymal process. 3. Hiatal hernia again noted. <Electronically signed by Rolando Tao > 01/31/21 [id number]
== END ==
LOC: M RAD 07:47
PROVIDERS: ATTEND Nurse Practitioner Family
DX: R91.1 Solitary pulmonary nodule (principal); K44.9 Diaphragmatic hernia without obstruction or gangrene
CPT/HCPCS: 71260; Q9967

== ENCOUNTER → 2021-08-30 | Outpatient (CLI) | payer MEDICARE, OTHER, MEDICAID ==
[~2021-08-30] MED LIST changes: -CYMB60CA3 PO; +CYMB60CA4 PO; -ISOVUE-370 76% 100ML VIAL As Ordered ONE; +OMEP40CA4 PO; -OMEP40CA97 PO
--- NOTE | 2021-08-30 14:16 | REPMRS ---
Patient History The patient states she has not had a clinical breast exam in over a year. Family history of colorectal cancer at age 55 in mother. Took hormonal contraceptives for 10 years. Tomosynthesis is performed. Volpara breast density is a. [facility] lifetime risk of breast cancer 8.0%. Patient states no breast complaints today. Patient has signed MRS History Sheet. Digital Woman Screen Mammo: August 30, 2021 - Exam #: [id number] Bilateral CC and MLO view(s) were taken. Technologist: Cassie Shipman, Technologist Prior study comparison: June 11, 2018, bilateral digital woman screen mammo performed at [facility]. November 14, 2016, bilateral digital mammo screening bilat, performed at [facility]. FINDINGS: There are scattered fibroglandular densities. There has been no change in the appearance of the mammogram from the prior studies. There is a mild amount of residual fibroglandular tissue which is fairly symmetric. There is no interval development of dominant mass, architectural distortion, or clustered microcalcification suggestive of malignancy. Assessment: BI-RADS/ACR category 1 mammogram. Negative Mammogram. Recommendation Routine screening mammogram in 1 year (for women over age 40). This mammogram was interpreted with the aid of an FDA-approved computer-aided dectection system. Electronically Signed By: Osman Crowley MD 08/30/21 [id number]
== END ==
LOC: M WHC 12:01
PROVIDERS: ATTEND Nurse Practitioner Family
DX: Z12.31 Encounter for screening mammogram for malignant neoplasm of breast (principal); Z92.0 Personal history of contraception

== ENCOUNTER → 2022-02-02 | Outpatient (CLI) | payer MEDICARE, OTHER, MEDICAID ==
[~2022-02-02] MED LIST changes: +AMLO1TAB24; +ATOR1TAB21; +GABA-283; -RISP2TAB PO; +RISP2TAB29 PO
[2022-02-02 12:40] LABS: BASO # 0.1 10^3/uL (0.0-0.2); BASO % 0.5 % (0.0-1.0); EOS # 0.1 10^3/uL (0.0-0.5); HEMATOCRIT 46.5 % (36.0-47.0); HEMOGLOBIN 15.1 g/dl (12.0-15.5); LYMPH # 2.2 10^3/uL (1.5-5.0); MEAN CORPUSCULAR HEMOGLOBIN 30.8 pg (27.0-33.0); MEAN CORPUSCULAR HGB CONC 32.5 g/dl (32.0-36.5); MEAN CORPUSCULAR VOLUME 94.9 fl (80.0-96.0); MONO # 0.7 10^3/uL (0.0-0.8); MONO % 6.2 % (2.0-8.0); PLATELET COUNT, AUTOMATED 416 10^3/uL (150-450)
[2022-02-02 13:57] LABS: ALT/SGPT 13 U/L (12-78); BILIRUBIN,TOTAL 0.2 MG/DL (0.2-1.0); BLOOD UREA NITROGEN 10 MG/DL (7-18); CALCIUM LEVEL 8.7 MG/DL (8.5-10.1); CARBON DIOXIDE LEVEL 34 MEQ/L (21-32); CHLORIDE LEVEL 101 MEQ/L (98-107); CHOLESTEROL LEVEL 175 MG/DL (<200); CHOLESTEROL RISK RATIO 4.487 (<5); CREATININE FOR GFR 0.64 MG/DL (0.55-1.30); FREE T4 1.16 NG/DL (0.76-1.46); GLOMERULAR FILTRATION RATE > 60.0 (>51); GLUCOSE, FASTING 95 MG/DL (70-100); HDL CHOLESTEROL 39 MG/DL (>40); LDL CHOLESTEROL 111 MG/DL (<100); NON-HDL-C 136 MG/DL; SODIUM LEVEL 141 MEQ/L (136-145); THYROID STIMULATING HORMONE 0.454 uIU/ML (0.358-3.740); TOTAL PROTEIN 7.4 GM/DL (6.4-8.2); TRIGLYCERIDES LEVEL 127 MG/DL (<150)
[2022-02-02 18:30] LABS: HEMOGLOBIN A1c 6.2 %
== END ==
LOC: M WUC 10:27
PROVIDERS: ATTEND Nurse Practitioner Family
DX: E78.5 Hyperlipidemia, unspecified (principal); E11.9 Type 2 diabetes mellitus without complications; I10 Essential (primary) hypertension

== ENCOUNTER 2022-02-05 12:56 | Emergency (ER) | payer MEDICARE, OTHER ==
[~2022-02-05] VITALS: Ht 170.2 cm; Wt 109.1 kg
[~2022-02-05 12:56] MED LIST changes: -AMLO1TAB24; -ATOR1TAB21; -GABA-283
[2022-02-05] MEDS ORDERED: ATOR1TAB21 (13:21)
[2022-02-05] MEDS ORDERED: AMLO1TAB24 (13:21)
[2022-02-05] MEDS ORDERED: GABA-283 (13:21)
[2022-02-05 14:10] LABS: BASO % 0.4 % (0.0-1.0); EOS # 0.1 10^3/uL (0.0-0.5); EOS % 0.9 % (0.0-3.0); HEMATOCRIT 44.9 % (36.0-47.0); HEMOGLOBIN 14.7 g/dl (12.0-15.5); LYMPH # 2.4 10^3/uL (1.5-5.0); LYMPH % 26.4 % (24.0-44.0); MEAN CORPUSCULAR HEMOGLOBIN 30.1 pg (27.0-33.0); MEAN CORPUSCULAR HGB CONC 32.7 g/dl (32.0-36.5); MEAN CORPUSCULAR VOLUME 91.8 fl (80.0-96.0); MONO # 0.6 10^3/uL (0.0-0.8); MONO % 6.3 % (2.0-8.0); NEUTROPHILS # 5.9 10^3/uL (1.5-8.5); NEUTROPHILS % 65.7 % (36.0-66.0); PLATELET COUNT, AUTOMATED 393 10^3/uL (150-450); RED BLOOD COUNT 4.89 10^6/uL (4.00-5.40)
[2022-02-05 14:23] LABS: INR 0.95; PROTHROMBIN TIME 13.1 SECONDS (12.7-14.5)
[2022-02-05 14:34] LABS: CK-MB VALUE MASS < 1.0 NG/ML (<3.6); CPK CREATINE PHOSPHOKINASE 32 U/L (26-192); MB/CK RELATIVE INDEX 3.12 (< OR =4)
[2022-02-05 14:45] LABS: ALBUMIN 2.8 GM/DL (3.2-5.2); ALT/SGPT 14 U/L (12-78); BILIRUBIN,DIRECT < 0.1 MG/DL (0.0-0.2); BILIRUBIN,TOTAL 0.4 MG/DL (0.2-1.0); LIPASE 61 U/L (73-393); TOTAL PROTEIN 6.9 GM/DL (6.4-8.2)
[2022-02-05] MEDS ORDERED: NS 1,000 ML IV ONE (15:20)
[2022-02-05] MEDS ORDERED: GI COCKTAIL 50ML BTL(HYOSCYAMINE/MAALOX/LIDOCAINE VISCOUS)(1:3:1) PO ONE (15:20)
[2022-02-05] MEDS ORDERED: POTASSIUM CHLORIDE 10MEQ SR TABLET PO ONE (15:20)
[2022-02-05 16:45] VITALS: BP 155/88
== END 2022-02-05 17:05 | disposition home or self-care (01) ==
LOC: M ED 12:56
DX: R07.89 Other chest pain (principal); I10 Essential (primary) hypertension; E78.5 Hyperlipidemia, unspecified; J44.9 Chronic obstructive pulmonary disease, unspecified; M54.9 Dorsalgia, unspecified; F17.200 Nicotine dependence, unspecified, uncomplicated; K92.9 Disease of digestive system, unspecified

== ENCOUNTER → 2022-04-16 | Outpatient (CLI) | payer MEDICARE, MEDICAID ==
[~2022-04-16] MED LIST changes: +AMLO1TAB24; +ATOR1TAB21; +GABA-283
== END ==
LOC: M PAIN 13:00
PROVIDERS: ATTEND Nurse Practitioner Family
DX: M96.1 Postlaminectomy syndrome, not elsewhere classified (principal); K21.9 Gastro-esophageal reflux disease without esophagitis; K44.9 Diaphragmatic hernia without obstruction or gangrene; I10 Essential (primary) hypertension; F32.A Depression, unspecified; F41.9 Anxiety disorder, unspecified; A60.09 Herpesviral infection of other urogenital tract; G47.00 Insomnia, unspecified; F43.10 Post-traumatic stress disorder, unspecified; G47.30 Sleep apnea, unspecified; K64.8 Other hemorrhoids; Z98.1 Arthrodesis status; R73.01 Impaired fasting glucose; E78.5 Hyperlipidemia, unspecified; M54.2 Cervicalgia; M54.6 Pain in thoracic spine; F17.210 Nicotine dependence, cigarettes, uncomplicated; Z79.899 Other long term (current) drug therapy; Z86.718 Personal history of other venous thrombosis and embolism; Z88.8 Allergy status to other drugs, medicaments and biological substances

== ENCOUNTER → 2022-06-22 | Outpatient (CLI) | payer MEDICARE, MEDICAID | LOC: M PAIN 09:00 | PROVIDERS: ATTEND Nurse Practitioner Family | DX: M54.2 Cervicalgia (principal); M54.6 Pain in thoracic spine; K21.9 Gastro-esophageal reflux disease without esophagitis; K44.9 Diaphragmatic hernia without obstruction or gangrene; I10 Essential (primary) hypertension; F32.A Depression, unspecified; F41.9 Anxiety disorder, unspecified; A60.09 Herpesviral infection of other urogenital tract; G47.00 Insomnia, unspecified; M06.9 Rheumatoid arthritis, unspecified; G47.30 Sleep apnea, unspecified; K64.8 Other hemorrhoids; K57.30 Diverticulosis of large intestine without perforation or abscess without bleeding; R73.01 Impaired fasting glucose; E78.5 Hyperlipidemia, unspecified; F17.210 Nicotine dependence, cigarettes, uncomplicated; Z71.6 Tobacco abuse counseling; Z79.899 Other long term (current) drug therapy; Z88.8 Allergy status to other drugs, medicaments and biological substances ==

== ENCOUNTER → 2022-07-02 | Outpatient (REF) | payer MEDICARE, MEDICAID ==
[~2022-07-02] MED LIST changes: -AMLO1TAB24; +AMLO1TAB24 PO; +GABA600T4 PO; +METO1TAB32 PO; +OMEP40CA5 PO
[2022-07-02 18:26] LABS: RSV AMPLIFICATION NEGATIVE (NEGATIVE)
== END ==
LOC: M SFHCPLAZ 17:11
PROVIDERS: ATTEND Nurse Practitioner Family
DX: J02.9 Acute pharyngitis, unspecified (principal)

== ENCOUNTER → 2022-08-01 | Outpatient (CLI) | payer MEDICARE, MEDICAID ==
[~2022-08-01] MED LIST changes: +AMLO1TAB24; -AMLO1TAB24 PO; -GABA600T4 PO; -METO1TAB32 PO; -OMEP40CA5 PO
[2022-08-01 11:39] LABS: BASO % 0.4 % (0.0-1.0); EOS # 0.1 10^3/uL (0.0-0.5); EOS % 1.2 % (0.0-3.0); HEMATOCRIT 45.6 % (36.0-47.0); HEMOGLOBIN 14.5 g/dl (12.0-15.5); LYMPH # 2.9 10^3/uL (1.5-5.0); LYMPH % 28.4 % (24.0-44.0); MEAN CORPUSCULAR HEMOGLOBIN 31.2 pg (27.0-33.0); MEAN CORPUSCULAR HGB CONC 31.8 g/dl (32.0-36.5); MEAN CORPUSCULAR VOLUME 98.1 fl (80.0-96.0); MONO # 0.7 10^3/uL (0.0-0.8); MONO % 6.7 % (2.0-8.0); NEUTROPHILS # 6.3 10^3/uL (1.5-8.5); NEUTROPHILS % 62.7 % (36.0-66.0); PLATELET COUNT, AUTOMATED 404 10^3/uL (150-450); RED BLOOD COUNT 4.65 10^6/uL (4.00-5.40)
[2022-08-01 12:15] LABS: ALKALINE PHOSPHATASE 87 U/L (46-116); ALT/SGPT 14 U/L (7.0-40); AST/SGOT 13 U/L (<34); BILIRUBIN,TOTAL 0.3 MG/DL (0.3-1.2); BLOOD UREA NITROGEN 11 MG/DL (9-23); CALCIUM LEVEL 8.6 MG/DL (8.5-10.1); CARBON DIOXIDE LEVEL 32 MMOL/L (20-31); CHLORIDE LEVEL 101 MMOL/L (98-107); CHOLESTEROL LEVEL 200 MG/DL (<200); CREATININE FOR GFR 0.63 MG/DL (0.55-1.30); GLOMERULAR FILTRATION RATE > 60.0 (>51); GLUCOSE, FASTING 109 MG/DL (60-100); HDL CHOLESTEROL 37.7 MG/DL (>40); LDL CHOLESTEROL 135.9 MG/DL (<100); NON-HDL-C 162 MG/DL; POTASSIUM SERUM 4.1 MMOL/L (3.5-5.1); SODIUM LEVEL 140 MMOL/L (136-145); TOTAL PROTEIN 6.9 G/DL (5.7-8.2); TRIGLYCERIDES LEVEL 132 MG/DL (<150)
[2022-08-01 12:17] LABS: FREE T4 1.23 NG/DL (0.89-1.76); THYROID STIMULATING HORMONE 0.684 uIU/ML (0.55-4.78)
[2022-08-01 12:52] LABS: HEMOGLOBIN A1c 5.6 % (4.0-6.0)
== END ==
LOC: M LAB 08:49
PROVIDERS: ATTEND Nurse Practitioner Family
DX: E11.9 Type 2 diabetes mellitus without complications (principal); E78.5 Hyperlipidemia, unspecified; I10 Essential (primary) hypertension

== ENCOUNTER → 2022-08-01 | Outpatient (REF) | payer MEDICARE, MEDICAID, OTHER ==
[~2022-08-01] MED LIST changes: -AMLO1TAB24; +AMLO1TAB24 PO; +GABA600T4 PO; +METO1TAB32 PO; +OMEP40CA5 PO
[2022-08-06 09:09] LABS: ANTI-SACCHAROMYCES CEREV. IgA 46.3 Units (0.0-24.9); ANTI-SACCHAROMYCES CEREV. IgG 45.2 Units (0.0-24.9); CALPROTECTIN STOOL 135 ug/g (0-120); FATS NEUTRAL Normal (.); FATS TOTAL Normal (.); PANCREATIC ELASTASE STOOL 466 (>200)
== END ==
LOC: M LAB 10:52
PROVIDERS: ATTEND Nurse Practitioner Family
DX: R19.7 Diarrhea, unspecified (principal); E11.9 Type 2 diabetes mellitus without complications; E78.5 Hyperlipidemia, unspecified; I10 Essential (primary) hypertension

== ENCOUNTER → 2022-08-13 | Outpatient (CLI) | payer MEDICARE, OTHER | LOC: M LABSMTC 11:29 | PROVIDERS: ATTEND Anesthesiology | DX: Z01.812 Encounter for preprocedural laboratory examination (principal); Z11.52 Encounter for screening for COVID-19 ==

== ENCOUNTER → 2022-08-16 | Outpatient (CLI) | payer MEDICARE, MEDICAID | LOC: M PAIN 11:00 | PROVIDERS: ATTEND Nurse Practitioner Family | DX: M50.10 Cervical disc disorder with radiculopathy, unspecified cervical region (principal); G89.29 Other chronic pain; K21.9 Gastro-esophageal reflux disease without esophagitis; I10 Essential (primary) hypertension; M06.9 Rheumatoid arthritis, unspecified; G47.30 Sleep apnea, unspecified; F17.210 Nicotine dependence, cigarettes, uncomplicated; Z86.59 Personal history of other mental and behavioral disorders; Z88.1 Allergy status to other antibiotic agents; E66.01 Morbid (severe) obesity due to excess calories; Z68.41 Body mass index [BMI] 40.0-44.9, adult; Z79.899 Other long term (current) drug therapy ==

== ENCOUNTER → 2022-09-21 | Outpatient (REF) | payer MEDICARE, MEDICAID | LOC: M LAB REF 16:12 | PROVIDERS: ATTEND Physician Assistant | DX: J02.9 Acute pharyngitis, unspecified (principal) ==

== ENCOUNTER → 2022-10-29 | Outpatient (CLI) | payer MEDICARE, MEDICAID ==
[~2022-10-29] MED LIST changes: +ZOLO100T PO
== END ==
LOC: M LABSMTC 08:37
PROVIDERS: ATTEND Anesthesiology
DX: Z01.812 Encounter for preprocedural laboratory examination (principal)

== ENCOUNTER → 2022-11-01 | Outpatient (CLI) | payer MEDICARE, MEDICAID ==
[2022-11-01 12:05] LABS: BLOOD UREA NITROGEN 8 MG/DL (9-23); CREATININE FOR GFR 0.65 MG/DL (0.55-1.30); GLOMERULAR FILTRATION RATE > 60.0 (>51)
== END ==
LOC: M WUC 09:34
PROVIDERS: ATTEND Nurse Practitioner Family
DX: M54.16 Radiculopathy, lumbar region (principal)

== ENCOUNTER → 2022-11-02 | Day surgery (SDC) | payer MEDICARE, OTHER ==
[~2022-11-02] VITALS: Ht 170.2 cm; Wt 99.8 kg
== END | disposition home or self-care (01) ==
LOC: M OPP 09:33
PROVIDERS: ATTEND Internal Medicine Gastroenterology
DX: Z12.11 Encounter for screening for malignant neoplasm of colon (principal); Z80.0 Family history of malignant neoplasm of digestive organs; Z86.010 Personal history of colon polyps; Z53.8 Procedure and treatment not carried out for other reasons

== ENCOUNTER → 2022-11-05 | Outpatient (CLI) | payer MEDICARE, OTHER | LOC: M LABSMTC 11:53 | PROVIDERS: ATTEND Anesthesiology | DX: Z01.812 Encounter for preprocedural laboratory examination (principal) ==

== ENCOUNTER 2022-11-06 12:16 | Day surgery (SDC) | payer MEDICARE, OTHER ==
[~2022-11-06] VITALS: Ht 170.2 cm; Wt 113.6 kg
[2022-11-06] MEDS ORDERED: LIDOCAINE 2% 100MG/5ML SDV (FOR ANES.) As Ordered ONE (13:52)
[2022-11-06] MEDS ORDERED: propofoL 200 MG/20 ML VIAL As Ordered ONE (13:52)
[2022-11-06] MEDS ORDERED: fentaNYL 100 MCG/2 ML INJECTION As Ordered ONE (14:10)
[2022-11-06 15:31] VITALS: BP 136/60
== END 2022-11-06 15:48 | disposition home or self-care (01) ==
LOC: M OPP 12:16
PROVIDERS: ATTEND Internal Medicine Gastroenterology
DX: K64.4 Residual hemorrhoidal skin tags (principal); K64.8 Other hemorrhoids; T18.3XXA Foreign body in small intestine, initial encounter; Z86.010 Personal history of colon polyps; Z80.0 Family history of malignant neoplasm of digestive organs; K29.70 Gastritis, unspecified, without bleeding; J45.909 Unspecified asthma, uncomplicated; M79.7 Fibromyalgia; G47.33 Obstructive sleep apnea (adult) (pediatric); Z99.89 Dependence on other enabling machines and devices; K44.9 Diaphragmatic hernia without obstruction or gangrene; G57.83 Other specified mononeuropathies of bilateral lower limbs; F17.200 Nicotine dependence, unspecified, uncomplicated; Z79.51 Long term (current) use of inhaled steroids; Z79.891 Long term (current) use of opiate analgesic; Z79.899 Other long term (current) drug therapy; Z88.1 Allergy status to other antibiotic agents; Z88.5 Allergy status to narcotic agent; Z87.11 Personal history of peptic ulcer disease; Z87.19 Personal history of other diseases of the digestive system
CPT/HCPCS: 43235; 45385; 88305; J3010

== ENCOUNTER → 2022-11-15 | Outpatient (CLI) | payer MEDICARE, OTHER, MEDICAID ==
[2022-11-15 18:50] LABS: BASO # 0.1 10^3/uL (0.0-0.2); BASO % 0.6 % (0.0-1.0); EOS # 0.1 10^3/uL (0.0-0.5); EOS % 0.8 % (0.0-3.0); HEMATOCRIT 47.4 % (36.0-47.0); HEMOGLOBIN 15.3 g/dl (12.0-15.5); LYMPH # 2.4 10^3/uL (1.5-5.0); LYMPH % 24.6 % (24.0-44.0); MEAN CORPUSCULAR HGB CONC 32.3 g/dl (32.0-36.5); MEAN CORPUSCULAR VOLUME 92.9 fl (80.0-96.0); MONO # 0.6 10^3/uL (0.0-0.8); NEUTROPHILS # 6.7 10^3/uL (1.5-8.5); NEUTROPHILS % 67.8 % (36.0-66.0); PLATELET COUNT, AUTOMATED 389 10^3/uL (150-450); WHITE BLOOD COUNT 9.9 10^3/uL (4.0-10.0)
[2022-11-15 19:09] LABS: C REACTIVE PROTEIN QUANTITATIV < 0.40 MG/DL (<1.0)
[2022-11-15 19:10] LABS: ERYTHROCYTE SEDIMENTATION RATE 55 mm/hr (0-30)
[2022-11-15 19:11] LABS: IRON (FE) 82 UG/DL (50-170); PERCENT SATURATION 24.6 % (13.2-45.0); TOTAL IRON BINDING CAPACITY 333 UG/DL (250-425)
[2022-11-15 19:15] LABS: ALBUMIN 3.4 G/DL (3.2-5.2); ALKALINE PHOSPHATASE 96 U/L (46-116); ALT/SGPT 19 U/L (7.0-40); AST/SGOT 15 U/L (<34); BILIRUBIN,DIRECT 0.1 MG/DL (<0.4); BILIRUBIN,TOTAL 0.4 MG/DL (0.3-1.2); BLOOD UREA NITROGEN 11 MG/DL (9-23); CALCIUM LEVEL 8.8 MG/DL (8.5-10.1); CARBON DIOXIDE LEVEL 37 MMOL/L (20-31); CHLORIDE LEVEL 101 MMOL/L (98-107); CREATININE FOR GFR 0.56 MG/DL (0.55-1.30); GLOMERULAR FILTRATION RATE > 60.0 (>51); GLUCOSE, FASTING 101 MG/DL (60-100); POTASSIUM SERUM 3.7 MMOL/L (3.5-5.1); SODIUM LEVEL 141 MMOL/L (136-145); TOTAL PROTEIN 7.1 G/DL (5.7-8.2)
[2022-11-20 16:09] LABS: ANCA-ATYPICAL <1:20 titer (Neg:<1:20); CYTOPLASMIC NEUTROP AB ANCA-C <1:20 titer (Neg:<1:20); PERINUCLEAR AB ANCA-P <1:20 titer (Neg:<1:20)
== END ==
LOC: M WUC 11:51
PROVIDERS: ATTEND Nurse Practitioner Family
DX: R63.4 Abnormal weight loss (principal); R19.7 Diarrhea, unspecified

== ENCOUNTER → 2022-12-04 | Outpatient (CLI) | payer MEDICARE, MEDICAID ==
[~2022-12-04] MED LIST changes: +FLUT50SP17; -FLUTISP
== END ==
LOC: M PAIN 10:30
PROVIDERS: ATTEND Nurse Practitioner Family
DX: M54.16 Radiculopathy, lumbar region (principal); K21.9 Gastro-esophageal reflux disease without esophagitis; K44.9 Diaphragmatic hernia without obstruction or gangrene; I10 Essential (primary) hypertension; F32.A Depression, unspecified; F41.9 Anxiety disorder, unspecified; G47.00 Insomnia, unspecified; G47.30 Sleep apnea, unspecified; F43.10 Post-traumatic stress disorder, unspecified; E78.5 Hyperlipidemia, unspecified; K50.90 Crohn's disease, unspecified, without complications; F17.210 Nicotine dependence, cigarettes, uncomplicated; Z79.899 Other long term (current) drug therapy; Z88.8 Allergy status to other drugs, medicaments and biological substances

== ENCOUNTER 2022-12-21 17:13 | Emergency (ER) | payer MEDICARE, MEDICAID, OTHER ==
[~2022-12-21] VITALS: Ht 170.2 cm; Wt 111.6 kg
[2022-12-21 18:08] LABS: RSV AMPLIFICATION NEGATIVE (NEGATIVE)
[2022-12-21 18:30] VITALS: BP 193/86
[2022-12-21] MEDS ORDERED: METOPROLOL SUCC *XL* 25MG TAB (TopROL *XL*) PO ONE (18:30)
[2022-12-21 18:52] LABS: BASO # 0.1 10^3/uL (0.0-0.2); BASO % 0.5 % (0.0-1.0); EOS # 0.1 10^3/uL (0.0-0.5); EOS % 1.1 % (0.0-3.0); HEMATOCRIT 45.3 % (36.0-47.0); HEMOGLOBIN 14.9 g/dl (12.0-15.5); LYMPH # 3.6 10^3/uL (1.5-5.0); LYMPH % 34.9 % (24.0-44.0); MEAN CORPUSCULAR HGB CONC 32.9 g/dl (32.0-36.5); MEAN CORPUSCULAR VOLUME 91.1 fl (80.0-96.0); MONO # 0.8 10^3/uL (0.0-0.8); MONO % 7.8 % (2.0-8.0); NEUTROPHILS # 5.7 10^3/uL (1.5-8.5); NEUTROPHILS % 55.5 % (36.0-66.0); PLATELET COUNT, AUTOMATED 366 10^3/uL (150-450); RED BLOOD COUNT 4.97 10^6/uL (4.00-5.40); WHITE BLOOD COUNT 10.2 10^3/uL (4.0-10.0)
[2022-12-21 19:04] LABS: INR 0.94; PROTHROMBIN TIME 12.8 SECONDS (12.5-14.5)
[2022-12-21 19:05] LABS: PARTIAL THROMBOPLASTIN TIME 27.7 SECONDS (24.8-34.2)
[2022-12-21 19:15] LABS: BLOOD UREA NITROGEN 18 MG/DL (9-23); CALCIUM LEVEL 8.8 MG/DL (8.5-10.1); CARBON DIOXIDE LEVEL 29 MMOL/L (20-31); CHLORIDE LEVEL 102 MMOL/L (98-107); CK-MB VALUE MASS < 1.0 NG/ML (<3.6); CREATININE FOR GFR 0.61 MG/DL (0.55-1.30); GLOMERULAR FILTRATION RATE > 60.0 (>51); GLUCOSE, FASTING 103 MG/DL (60-100); POTASSIUM SERUM 4.2 MMOL/L (3.5-5.1); SODIUM LEVEL 137 MMOL/L (136-145)
[2022-12-21 19:17] LABS: CPK CREATINE PHOSPHOKINASE 32 U/L (34-145); FREE T4 1.07 NG/DL (0.89-1.76); MB/CK RELATIVE INDEX 3.12 (< OR =4); THYROID STIMULATING HORMONE 1.083 uIU/ML (0.55-4.78)
[2022-12-21 20:04] LABS: D-DIMER QUANT 555.89 ng/ml (<500)
[2022-12-21 20:21] LABS: CK-MB VALUE MASS < 1.0 NG/ML (<3.6)
[2022-12-21 20:22] LABS: CPK CREATINE PHOSPHOKINASE 31 U/L (34-145); MB/CK RELATIVE INDEX 3.22 (< OR =4)
[2022-12-21 20:30] VITALS: BP 132/75
[2022-12-21] MEDS ORDERED: ISOVUE-370 76% 100ML VIAL As Ordered ONE (20:40)
== END 2022-12-21 22:24 | disposition home or self-care (01) ==
LOC: M ED 17:13
DX: R07.89 Other chest pain (principal); J06.9 Acute upper respiratory infection, unspecified; I10 Essential (primary) hypertension; J44.9 Chronic obstructive pulmonary disease, unspecified; K21.9 Gastro-esophageal reflux disease without esophagitis; K44.9 Diaphragmatic hernia without obstruction or gangrene; K52.9 Noninfective gastroenteritis and colitis, unspecified
CPT/HCPCS: 36415; 70450; 71046; 71275; 80048; 82550; 82553; 84439; 84443; 84484; 85025; 85379; 85610; 85730; 87631; 87880; 93005; 99284; Q9967

== ENCOUNTER → 2023-01-01 | Outpatient (CLI) | payer MEDICARE ==
[2023-01-01 11:58] LABS: BASO # 0.1 10^3/uL (0.0-0.2); BASO % 0.6 % (0.0-1.0); EOS # 0.1 10^3/uL (0.0-0.5); EOS % 1.3 % (0.0-3.0); HEMATOCRIT 44.5 % (36.0-47.0); HEMOGLOBIN 14.7 g/dl (12.0-15.5); LYMPH # 2.9 10^3/uL (1.5-5.0); LYMPH % 29.8 % (24.0-44.0); MEAN CORPUSCULAR HEMOGLOBIN 30.3 pg (27.0-33.0); MEAN CORPUSCULAR VOLUME 91.8 fl (80.0-96.0); MONO # 0.7 10^3/uL (0.0-0.8); MONO % 7.4 % (2.0-8.0); NEUTROPHILS # 5.8 10^3/uL (1.5-8.5); NEUTROPHILS % 60.7 % (36.0-66.0); PLATELET COUNT, AUTOMATED 430 10^3/uL (150-450); RED BLOOD COUNT 4.85 10^6/uL (4.00-5.40); WHITE BLOOD COUNT 9.6 10^3/uL (4.0-10.0)
[2023-01-01 12:08] LABS: HEMOGLOBIN A1c 5.7 % (4.0-6.0)
[2023-01-01 12:13] LABS: URIC ACID 4.9 MG/DL (3.1-7.8)
[2023-01-01 12:16] LABS: ERYTHROCYTE SEDIMENTATION RATE 60 mm/hr (0-30)
[2023-01-01 12:17] LABS: ALBUMIN 3.6 G/DL (3.2-5.2); ALKALINE PHOSPHATASE 103 U/L (46-116); ALT/SGPT 15 U/L (7.0-40); AST/SGOT 14 U/L (<34); BILIRUBIN,TOTAL 0.4 MG/DL (0.3-1.2); BLOOD UREA NITROGEN 11 MG/DL (9-23); CALCIUM LEVEL 9.1 MG/DL (8.5-10.1); CARBON DIOXIDE LEVEL 32 MMOL/L (20-31); CHLORIDE LEVEL 102 MMOL/L (98-107); CHOLESTEROL LEVEL 214 MG/DL (<200); CHOLESTEROL RISK RATIO 5.37 (<5); CREATININE FOR GFR 0.58 MG/DL (0.55-1.30); GLOMERULAR FILTRATION RATE > 60.0 (>51); GLUCOSE, FASTING 106 MG/DL (60-100); HDL CHOLESTEROL 39.8 MG/DL (>40); LDL CHOLESTEROL 144.4 MG/DL (<100); NON-HDL-C 174.2 MG/DL; POTASSIUM SERUM 4.1 MMOL/L (3.5-5.1); SODIUM LEVEL 139 MMOL/L (136-145); TOTAL PROTEIN 7.2 G/DL (5.7-8.2); TRIGLYCERIDES LEVEL 149 MG/DL (<150)
[2023-01-01 12:20] LABS: RHEUMATOID FACTOR QUANT 5.5 IU/ML (<14); THYROID STIMULATING HORMONE 0.774 uIU/ML (0.55-4.78)
[2023-01-01 12:22] LABS: FREE T4 1.15 NG/DL (0.89-1.76)
[2023-01-07 11:07] LABS: ANA (HEP2) Negative (.); CYCLIC CITRULLINATED PEPTIDE 7 units (0-19)
== END ==
LOC: M WUC 08:55
PROVIDERS: ATTEND Nurse Practitioner Family
DX: M06.9 Rheumatoid arthritis, unspecified (principal); E78.5 Hyperlipidemia, unspecified; I10 Essential (primary) hypertension; E11.9 Type 2 diabetes mellitus without complications

== ENCOUNTER → 2023-02-08 | Outpatient (CLI) | payer MEDICARE, OTHER | LOC: M RAD 12:53 | PROVIDERS: ATTEND Nurse Practitioner Family | DX: R22.43 Localized swelling, mass and lump, lower limb, bilateral (principal) ==

== ENCOUNTER → 2023-04-19 | Outpatient (CLI) | payer MEDICARE, OTHER ==
[~2023-04-19] MED LIST changes: -GABA-283; +GABA-284
[2023-04-19 12:51] LABS: BASO % 0.4 % (0.0-1.0); EOS # 0.2 10^3/uL (0.0-0.5); EOS % 1.5 % (0.0-3.0); HEMATOCRIT 41.3 % (36.0-47.0); HEMOGLOBIN 13.4 g/dl (12.0-15.5); LYMPH # 2.7 10^3/uL (1.5-5.0); LYMPH % 26.7 % (24.0-44.0); MEAN CORPUSCULAR HEMOGLOBIN 31.2 pg (27.0-33.0); MEAN CORPUSCULAR HGB CONC 32.4 g/dl (32.0-36.5); MEAN CORPUSCULAR VOLUME 96.3 fl (80.0-96.0); MONO # 0.7 10^3/uL (0.0-0.8); MONO % 7.4 % (2.0-8.0); NEUTROPHILS # 6.3 10^3/uL (1.5-8.5); NEUTROPHILS % 63.7 % (36.0-66.0); PLATELET COUNT, AUTOMATED 364 10^3/uL (150-450); RED BLOOD COUNT 4.29 10^6/uL (4.00-5.40)
[2023-04-19 13:12] LABS: HEMOGLOBIN A1c 5.3 % (4.0-6.0)
[2023-04-19 13:14] LABS: CREATININE, URINE 73.8 MG/DL
[2023-04-19 13:20] LABS: ALBUMIN 3.3 G/DL (3.2-5.2); ALKALINE PHOSPHATASE 95 U/L (46-116); ALT/SGPT 13 U/L (7.0-40); AST/SGOT < 8 U/L (<34); BILIRUBIN,TOTAL 0.2 MG/DL (0.3-1.2); BLOOD UREA NITROGEN 8 MG/DL (9-23); CALCIUM LEVEL 8.8 MG/DL (8.5-10.1); CARBON DIOXIDE LEVEL 30 MMOL/L (20-31); CHLORIDE LEVEL 103 MMOL/L (98-107); CHOLESTEROL LEVEL 167 MG/DL (<200); CHOLESTEROL RISK RATIO 4.58 (<5); CREATININE FOR GFR 0.59 MG/DL (0.55-1.30); FOLATE 9.09 NG/ML (>5.4); FREE T4 1.12 NG/DL (0.89-1.76); GLOMERULAR FILTRATION RATE > 60.0 (>51); GLUCOSE, FASTING 107 MG/DL (60-100); HDL CHOLESTEROL 36.4 MG/DL (>40); LDL CHOLESTEROL 106.2 MG/DL (<100); NON-HDL-C 130.6 MG/DL; POTASSIUM SERUM 3.9 MMOL/L (3.5-5.1); SODIUM LEVEL 137 MMOL/L (136-145); THYROID STIMULATING HORMONE 0.438 uIU/ML (0.55-4.78); TOTAL 25(OH) VITAMIN D 7.4 NG/ML (20.0-100.0); TOTAL PROTEIN 6.9 G/DL (5.7-8.2); TRIGLYCERIDES LEVEL 122 MG/DL (<150)
== END ==
LOC: M WUC 09:48
PROVIDERS: ATTEND Nurse Practitioner Family
DX: E78.5 Hyperlipidemia, unspecified (principal); E11.9 Type 2 diabetes mellitus without complications; E55.9 Vitamin D deficiency, unspecified; R41.3 Other amnesia; I10 Essential (primary) hypertension

== ENCOUNTER → 2023-06-26 | Outpatient (CLI) | payer MEDICARE, OTHER ==
[~2023-06-26] MED LIST changes: +ATOM60CA2 PO; +DICY20TA20 PO; +GABA-284 PO; +LORA1TAB23 PO; +QUET50TA67 PO; +ROSU10TA6 PO; +SERT25TA21 PO
== END ==
LOC: M WUC 13:32
PROVIDERS: ATTEND Nurse Practitioner Family
DX: R19.7 Diarrhea, unspecified (principal)

== ENCOUNTER → 2023-08-21 | Outpatient (CLI) | payer MEDICARE, MEDICAID ==
[~2023-08-21] MED LIST changes: -FLUT50SP17; +FLUTISP; +ISOVUE-370 76% 100ML VIAL As Ordered ONE
== END ==
LOC: M RAD 16:21
PROVIDERS: ATTEND Physician Assistant Medical
DX: R22.1 Localized swelling, mass and lump, neck (principal)
CPT/HCPCS: 70491; Q9967

== ENCOUNTER → 2023-09-06 | Outpatient (REF) | payer MEDICARE ==
[~2023-09-06] MED LIST changes: -ISOVUE-370 76% 100ML VIAL As Ordered ONE
[2023-09-06 19:08] LABS: APPEARANCE, URINE CLEAR (CLEAR); BACTERIA, URINE AUTO NEGATIVE (NEGATIVE); BILIRUBIN, URINE AUTO NEGATIVE (NEGATIVE); BLOOD, URINE BLOOD NEGATIVE (NEGATIVE); COLOR, URINE YELLOW (YELLOW); GLUCOSE, URINE (UA) AUTO NEGATIVE (NEGATIVE); KETONE, URINE AUTO NEGATIVE (NEGATIVE); LEUKOCYTE ESTERASE, URINE AUTO NEGATIVE (NEGATIVE); NITRITE, URINE AUTO NEGATIVE (NEGATIVE); PROTEIN, URINE AUTO NEGATIVE (NEGATIVE); RBC, URINE AUTO 0 /HPF (0-3); SPECIFIC GRAVITY URINE AUTO 1.015 (1.002-1.035); SQUAMOUS EPITHELIAL CELL UR AU 2 /HPF (0-6); UROBILINOGEN, URINE AUTO 0.2 mg/dL (0.0-2.0); WBC, URINE AUTO 0 /HPF (0-3)
[2023-09-06 19:37] LABS: BASO # 0.1 10^3/uL (0.0-0.2); BASO % 0.6 % (0.0-1.0); EOS # 0.1 10^3/uL (0.0-0.5); EOS % 0.7 % (0.0-3.0); HEMATOCRIT 42.7 % (36.0-47.0); HEMOGLOBIN 13.9 g/dl (12.0-15.5); LYMPH % 28.8 % (24.0-44.0); MEAN CORPUSCULAR HEMOGLOBIN 30.7 pg (27.0-33.0); MEAN CORPUSCULAR HGB CONC 32.6 g/dl (32.0-36.5); MEAN CORPUSCULAR VOLUME 94.3 fl (80.0-96.0); MONO # 0.7 10^3/uL (0.0-0.8); MONO % 6.2 % (2.0-8.0); NEUTROPHILS # 6.7 10^3/uL (1.5-8.5); NEUTROPHILS % 63.5 % (36.0-66.0); PLATELET COUNT, AUTOMATED 396 10^3/uL (150-450); RED BLOOD COUNT 4.53 10^6/uL (4.00-5.40); WHITE BLOOD COUNT 10.5 10^3/uL (4.0-10.0)
[2023-09-06 19:43] LABS: ERYTHROCYTE SEDIMENTATION RATE 65 mm/hr (0-30)
[2023-09-06 19:48] LABS: TOTAL PROTEIN,RANDOM URINE 9.1 MG/DL (0.0-14.0)
[2023-09-06 19:52] LABS: COMPLEMENT C3 165.2 MG/DL (90.0-170.0); COMPLEMENT C4 41.5 MG/DL (12-36); IMMUNOGLOBULIN A 456.4 MG/DL (40-350)
[2023-09-06 19:53] LABS: ALBUMIN 3.6 G/DL (3.2-5.2); ALKALINE PHOSPHATASE 96 U/L (46-116); ALT/SGPT 17 U/L (7.0-40); AST/SGOT 10 U/L (<34); BILIRUBIN,TOTAL 0.4 MG/DL (0.3-1.2); BLOOD UREA NITROGEN 10 MG/DL (9-23); CALCIUM LEVEL 8.9 MG/DL (8.5-10.1); CARBON DIOXIDE LEVEL 30 MMOL/L (20-31); CHLORIDE LEVEL 100 MMOL/L (98-107); CREATININE FOR GFR 0.54 MG/DL (0.55-1.30); GLOMERULAR FILTRATION RATE > 60.0 (>51); GLUCOSE, FASTING 79 MG/DL (60-100); IMMUNOGLOBULIN G 1501 MG/DL (650-1600); SODIUM LEVEL 137 MMOL/L (136-145); TOTAL PROTEIN 7.5 G/DL (5.7-8.2)
== END ==
LOC: M SFHCRHEU 14:48
PROVIDERS: ATTEND Internal Medicine Rheumatology
DX: M25.50 Pain in unspecified joint (principal); K13.79 Other lesions of oral mucosa; R14.0 Abdominal distension (gaseous); R20.0 Anesthesia of skin

== ENCOUNTER 2023-10-10 12:39 | Day surgery (SDC) | payer MEDICARE, MEDICAID ==
[~2023-10-10] VITALS: Ht 167.6 cm; Wt 62.5 kg
[~2023-10-10 12:39] MED LIST changes: +CLON0.25 PO; +FOLI1TAB11 PO; -LEFL1TAB4 PO; +LEFL20TA15 PO; +LOPE1CAP5 PO; +PANT40TA29 PO; +SUCR1TAB56 PO
[2023-10-10] MEDS: LR 1,000 ML IV SCH (13:30)
[2023-10-10] MEDS ORDERED: ROCURONIUM BROMIDE 50MG/5ML VIAL As Ordered ONE (13:34)
[2023-10-10] MEDS ORDERED: MIDAZOLAM INJ 2MG/2ML VIAL As Ordered ONE (13:34)
[2023-10-10] MEDS ORDERED: SUGAMMADEX SODIUM 500 MG/5 ML VIAL (BRIDION) As Ordered ONE (13:34)
[2023-10-10] MEDS ORDERED: LIDOCAINE 2% 100MG/5ML SDV (FOR ANES.) As Ordered ONE (13:34)
[2023-10-10] MEDS ORDERED: ONDANSETRON 4MG 2ML VIAL As Ordered ONE (13:34)
[2023-10-10] MEDS ORDERED: propofoL 200 MG/20 ML VIAL As Ordered ONE (13:34)
[2023-10-10] MEDS ORDERED: fentaNYL 100 MCG/2 ML INJECTION As Ordered ONE (13:34)
[2023-10-10] MEDS ORDERED: ACETAMINOPHEN 1000MG 100ML IV BAG As Ordered ONE (13:41)
[2023-10-10] MEDS ORDERED: LABETALOL 100MG/20ML VIAL As Ordered ONE (17:39)
[2023-10-10] MEDS ORDERED: ePHEDrine SULFATE 25 MG/5 ML(5MG/ML) SYRINGE As Ordered ONE (17:39)
[2023-10-10] MEDS ORDERED: PHENYLephrine 500MCG 5ML (100MCG/ML) SYRINGE As Ordered ONE (17:39)
[2023-10-10] MEDS: METHYLENE BLUE 0.5% (5MG/ML) 10 ML AMP (PROVAYBLUE) As Ordered ONE (18:00)
[2023-10-10] MEDS: EPINEPHrine 1MG/ML INJ 30ML MD-VIAL As Ordered ONE (18:00)
[2023-10-10] MEDS: SILVER NITRATE APPLICATOR (1 = QTY 10) As Ordered ONE (18:00)
[2023-10-10] MEDS: OXYMETAZOLINE 0.05% NASAL SPRAY (AFRIN) As Ordered ONE (18:01)
[2023-10-10] MEDS: LIDOCAINE W/EPINEPHRINE 1% 20ML VIAL As Ordered ONE (18:02)
[2023-10-10] MEDS ORDERED: fentaNYL 100 MCG/2 ML INJECTION IV PRN (18:40)
[2023-10-10] MEDS ORDERED: LR 1,000 ML IV SCH (18:40)
[2023-10-10] MEDS ORDERED: ONDANSETRON 4MG 2ML VIAL IV PRN (18:40)
[2023-10-10] MEDS: oxyCODONE 5MG TAB PO PRN (18:50)
[2023-10-10] MEDS: HYDROMORPHONE HCL 0.5 MG/ 0.5 ML SYRINGE IV PRN (18:53)
[2023-10-10 20:06] VITALS: BP 162/92; TEMP 98.4; O2SAT 94
== END 2023-10-10 20:06 | disposition home or self-care (01) ==
LOC: M SDC 12:39
PROVIDERS: ATTEND Otolaryngology
DX: D10.4 Benign neoplasm of tonsil (principal); F43.10 Post-traumatic stress disorder, unspecified; G47.30 Sleep apnea, unspecified; Z79.899 Other long term (current) drug therapy; Z88.5 Allergy status to narcotic agent; Z88.1 Allergy status to other antibiotic agents; F17.210 Nicotine dependence, cigarettes, uncomplicated
CPT/HCPCS: 31237; 31535; 88305; J0131; J0171; J1100; J1170; J1920; J2250; J2371; J2405; J3010; Q9968

== ENCOUNTER → 2023-11-01 | Outpatient (CLI) | payer MEDICARE, MEDICAID | LOC: M WHC 08:24 | PROVIDERS: ATTEND Nurse Practitioner Family | DX: Z12.31 Encounter for screening mammogram for malignant neoplasm of breast (principal) ==

== ENCOUNTER → 2023-11-13 | Outpatient (REF) | payer MEDICARE, MEDICAID ==
[2023-11-13 18:09] LABS: APPEARANCE, URINE CLEAR (CLEAR); BACTERIA, URINE AUTO NEGATIVE (NEGATIVE); BILIRUBIN, URINE AUTO NEGATIVE (NEGATIVE); BLOOD, URINE BLOOD NEGATIVE (NEGATIVE); COLOR, URINE STRAW (YELLOW); GLUCOSE, URINE (UA) AUTO NEGATIVE (NEGATIVE); KETONE, URINE AUTO NEGATIVE (NEGATIVE); LEUKOCYTE ESTERASE, URINE AUTO NEGATIVE (NEGATIVE); NITRITE, URINE AUTO NEGATIVE (NEGATIVE); PROTEIN, URINE AUTO NEGATIVE (NEGATIVE); RBC, URINE AUTO 0 /HPF (0-3); SPECIFIC GRAVITY URINE AUTO 1.003 (1.002-1.035); SQUAMOUS EPITHELIAL CELL UR AU 0 /HPF (0-6); UROBILINOGEN, URINE AUTO 0.2 mg/dL (0.0-2.0); WBC, URINE AUTO 0 /HPF (0-3)
[2023-11-13 18:46] LABS: CREATININE, URINE 21.7 MG/DL
[2023-11-13 18:47] LABS: MALB URINE SIEMENS < 3.0 MG/L; MAU/CREAT RATIO 13.8 MCG/MG (0.0-30.0)
== END ==
LOC: M SFHCPLAZ 17:03
PROVIDERS: ATTEND Nurse Practitioner Family
DX: R39.9 Unspecified symptoms and signs involving the genitourinary system (principal); E11.9 Type 2 diabetes mellitus without complications

== ENCOUNTER → 2023-11-18 | Outpatient (CLI) | payer MEDICARE, MEDICAID ==
[2023-11-18 16:59] LABS: BASO # 0.1 10^3/uL (0.0-0.2); BASO % 0.6 % (0.0-1.0); EOS # 0.1 10^3/uL (0.0-0.5); EOS % 1.1 % (0.0-3.0); HEMATOCRIT 44.1 % (36.0-47.0); HEMOGLOBIN 14.7 g/dl (12.0-15.5); LYMPH # 2.8 10^3/uL (1.5-5.0); LYMPH % 31.7 % (24.0-44.0); MEAN CORPUSCULAR HGB CONC 33.3 g/dl (32.0-36.5); MEAN CORPUSCULAR VOLUME 96.1 fl (80.0-96.0); MONO # 0.7 10^3/uL (0.0-0.8); MONO % 7.7 % (2.0-8.0); NEUTROPHILS # 5.2 10^3/uL (1.5-8.5); NEUTROPHILS % 58.6 % (36.0-66.0); PLATELET COUNT, AUTOMATED 416 10^3/uL (150-450); RED BLOOD COUNT 4.59 10^6/uL (4.00-5.40); WHITE BLOOD COUNT 8.8 10^3/uL (4.0-10.0)
[2023-11-18 17:10] LABS: CREATININE, URINE 126.3 MG/DL; MAU/CREAT RATIO 2.3 MCG/MG (0.0-30.0)
[2023-11-18 17:14] LABS: ALBUMIN 3.4 G/DL (3.2-5.2); ALKALINE PHOSPHATASE 93 U/L (46-116); ALT/SGPT 20 U/L (7.0-40); AST/SGOT 12 U/L (<34); BILIRUBIN,TOTAL 0.3 MG/DL (0.3-1.2); BLOOD UREA NITROGEN 10 MG/DL (9-23); CALCIUM LEVEL 8.7 MG/DL (8.5-10.1); CARBON DIOXIDE LEVEL 34 MMOL/L (20-31); CHLORIDE LEVEL 101 MMOL/L (98-107); CHOLESTEROL LEVEL 191 MG/DL (<200); CHOLESTEROL RISK RATIO 4.92 (<5); CREATININE FOR GFR 0.58 MG/DL (0.55-1.30); GLOMERULAR FILTRATION RATE > 60.0 (>51); GLUCOSE, FASTING 105 MG/DL (60-100); HDL CHOLESTEROL 38.8 MG/DL (>40); LDL CHOLESTEROL 122.2 MG/DL (<100); MAGNESIUM LEVEL 1.7 MG/DL (1.8-2.4); NON-HDL-C 152.2 MG/DL; POTASSIUM SERUM 4.2 MMOL/L (3.5-5.1); SODIUM LEVEL 134 MMOL/L (136-145); THYROID STIMULATING HORMONE 0.864 uIU/ML (0.55-4.78); TOTAL 25(OH) VITAMIN D 27.3 NG/ML (20.0-100.0); TRIGLYCERIDES LEVEL 150 MG/DL (<150)
[2023-11-18 17:16] LABS: FREE T4 1.05 NG/DL (0.89-1.76)
[2023-11-18 17:18] LABS: HEMOGLOBIN A1c 5.5 % (4.0-6.0)
== END ==
LOC: M WUC 10:28
PROVIDERS: ATTEND Nurse Practitioner Family
DX: E78.5 Hyperlipidemia, unspecified (principal); E11.9 Type 2 diabetes mellitus without complications; I10 Essential (primary) hypertension; E55.9 Vitamin D deficiency, unspecified

== ENCOUNTER → 2023-11-18 | Outpatient (REF) | payer MEDICARE, MEDICAID | LOC: M LAB REF 11:20 | PROVIDERS: ATTEND Internal Medicine Gastroenterology | DX: R19.7 Diarrhea, unspecified (principal) ==

== ENCOUNTER → 2023-11-18 | Outpatient (CLI) | payer MEDICARE, MEDICAID ==
[2023-11-18 16:49] LABS: BASO # 0.1 10^3/uL (0.0-0.2); BASO % 0.6 % (0.0-1.0); EOS # 0.1 10^3/uL (0.0-0.5); EOS % 1.1 % (0.0-3.0); HEMATOCRIT 45.7 % (36.0-47.0); HEMOGLOBIN 14.8 g/dl (12.0-15.5); LYMPH # 2.7 10^3/uL (1.5-5.0); LYMPH % 30.6 % (24.0-44.0); MEAN CORPUSCULAR HGB CONC 32.4 g/dl (32.0-36.5); MEAN CORPUSCULAR VOLUME 95.8 fl (80.0-96.0); MONO # 0.7 10^3/uL (0.0-0.8); MONO % 7.9 % (2.0-8.0); NEUTROPHILS # 5.3 10^3/uL (1.5-8.5); NEUTROPHILS % 59.6 % (36.0-66.0); PLATELET COUNT, AUTOMATED 437 10^3/uL (150-450); RED BLOOD COUNT 4.77 10^6/uL (4.00-5.40); WHITE BLOOD COUNT 8.9 10^3/uL (4.0-10.0)
[2023-11-18 17:06] LABS: ERYTHROCYTE SEDIMENTATION RATE 74 mm/hr (0-30)
[2023-11-18 17:11] LABS: C REACTIVE PROTEIN QUANTITATIV 0.5 MG/DL (<1.0)
[2023-11-18 17:12] LABS: PERCENT SATURATION 17.7 % (13.2-45.0)
[2023-11-18 17:15] LABS: FERRITIN 24.4 NG/ML (7.3-270.7)
== END ==
LOC: M WUC 10:25
PROVIDERS: ATTEND Internal Medicine Gastroenterology
DX: R19.7 Diarrhea, unspecified (principal)

== ENCOUNTER → 2023-11-18 | Outpatient (CLI) | payer MEDICARE, MEDICAID | LOC: M WUC 10:32 | PROVIDERS: ATTEND Internal Medicine Rheumatology | DX: M47.814 Spondylosis without myelopathy or radiculopathy, thoracic region (principal); M47.816 Spondylosis without myelopathy or radiculopathy, lumbar region; M25.50 Pain in unspecified joint; K13.79 Other lesions of oral mucosa; R14.0 Abdominal distension (gaseous); R20.0 Anesthesia of skin; R19.7 Diarrhea, unspecified; E78.5 Hyperlipidemia, unspecified; E11.9 Type 2 diabetes mellitus without complications; I10 Essential (primary) hypertension; E55.9 Vitamin D deficiency, unspecified ==

== ENCOUNTER → 2023-11-29 | Outpatient (CLI) | payer MEDICARE, MEDICAID ==
[~2023-11-29] MED LIST changes: +E-Z-PAQUE 96% w/w SUSP 176GM BTL As Ordered ONE
== END ==
LOC: M RAD 08:20
PROVIDERS: ATTEND Internal Medicine Gastroenterology
DX: R19.7 Diarrhea, unspecified (principal)

== ENCOUNTER 2024-08-25 16:14 | Emergency (ER) | payer MEDICARE, MEDICAID ==
[~2024-08-25] VITALS: Ht 167.6 cm; Wt 111.8 kg
[~2024-08-25 16:14] MED LIST changes: -E-Z-PAQUE 96% w/w SUSP 176GM BTL As Ordered ONE; +GABA-1490 PO; -GABA600T4 PO; -ROSU10TA6 PO; +ROSU10TA61 PO
[2024-08-25] MEDS ORDERED: MIRT-11 (17:59)
[2024-08-25] MEDS ORDERED: ACET-907 PO (17:59)
[2024-08-25] MEDS ORDERED: CLON0.5T2 (17:59)
[2024-08-25] MEDS: AUGMENTIN 875 MG TAB PO ONE ×2 (18:00)
[2024-08-25] MEDS ORDERED: [UNRECOGNIZED DRUG - CODE] PV (18:06)
[2024-08-25] MEDS ORDERED: AMOX875T2 PO (18:06)
[2024-08-25 18:13] VITALS: BP 179/81; TEMP 96.8; O2SAT 98
== END 2024-08-25 18:11 | disposition home or self-care (01) ==
LOC: M ED 16:14
DX: K04.7 Periapical abscess without sinus (principal); I10 Essential (primary) hypertension; F43.10 Post-traumatic stress disorder, unspecified; F17.200 Nicotine dependence, unspecified, uncomplicated; Z79.899 Other long term (current) drug therapy; Z88.5 Allergy status to narcotic agent; Z88.1 Allergy status to other antibiotic agents

== ENCOUNTER → 2024-11-16 | Outpatient (REF) | payer MEDICARE, MEDICAID ==
[~2024-11-16] MED LIST changes: +ACET-907 PO; +AMOX875T2 PO; +CLON0.5T2; +MIRT-11; +[UNRECOGNIZED DRUG - CODE] PV
[2024-11-22 14:32] LABS: CALPROTECTIN STOOL 45 mcg/g (<50)
== END ==
LOC: M LAB REF 12:47
PROVIDERS: ATTEND Nurse Practitioner Family
DX: K21.9 Gastro-esophageal reflux disease without esophagitis (principal); R19.7 Diarrhea, unspecified; A04.8 Other specified bacterial intestinal infections

== ENCOUNTER → 2024-11-23 | Outpatient (CLI) | payer MEDICARE, MEDICAID ==
[2024-11-23 10:28] LABS: BASO # 0.1 10^3/uL (0.0-0.2); BASO % 0.6 % (0.0-1.0); EOS # 0.1 10^3/uL (0.0-0.5); EOS % 0.8 % (0.0-3.0); HEMATOCRIT 49.3 % (36.0-47.0); HEMOGLOBIN 15.3 g/dl (12.0-15.5); LYMPH # 3.3 10^3/uL (1.5-5.0); LYMPH % 26.9 % (24.0-44.0); MEAN CORPUSCULAR HEMOGLOBIN 29.3 pg (27.0-33.0); MEAN CORPUSCULAR VOLUME 94.3 fl (80.0-96.0); MONO # 0.8 10^3/uL (0.0-0.8); MONO % 6.1 % (2.0-8.0); NEUTROPHILS # 8.1 10^3/uL (1.5-8.5); NEUTROPHILS % 65.4 % (36.0-66.0); PLATELET COUNT, AUTOMATED 418 10^3/uL (150-450); RED BLOOD COUNT 5.23 10^6/uL (4.00-5.40); WHITE BLOOD COUNT 12.4 10^3/uL (4.0-10.0)
[2024-11-23 10:42] LABS: HEMOGLOBIN A1c 5.4 % (4.0-6.0)
[2024-11-23 10:50] LABS: ALBUMIN 3.3 G/DL (3.2-5.2); ALKALINE PHOSPHATASE 115 U/L (35-104); ALT/SGPT 15 U/L (7.0-40); AST/SGOT 11 U/L (<34); BILIRUBIN,TOTAL 0.3 MG/DL (0.3-1.2); BLOOD UREA NITROGEN 11 MG/DL (9-23); CALCIUM LEVEL 8.9 MG/DL (8.5-10.1); CARBON DIOXIDE LEVEL 31 MMOL/L (20-31); CHLORIDE LEVEL 102 MMOL/L (98-107); CHOLESTEROL LEVEL 205 MG/DL (<200); CHOLESTEROL RISK RATIO 4.46 (<5); GLOMERULAR FILTRATION RATE > 60.0 (>51); GLUCOSE, FASTING 88 MG/DL (60-100); HDL CHOLESTEROL 45.9 MG/DL (>40); LDL CHOLESTEROL 128.3 MG/DL (<100); NON-HDL-C 159.1 MG/DL; POTASSIUM SERUM 4.1 MMOL/L (3.5-5.1); SODIUM LEVEL 141 MMOL/L (136-145); TOTAL PROTEIN 7.8 G/DL (5.7-8.2); TRIGLYCERIDES LEVEL 154 MG/DL (<150)
== END ==
LOC: M LAB 08:50
PROVIDERS: ATTEND Nurse Practitioner Family
DX: E55.9 Vitamin D deficiency, unspecified (principal); E11.9 Type 2 diabetes mellitus without complications; E78.5 Hyperlipidemia, unspecified

== ENCOUNTER → 2025-03-04 | Outpatient (CLI) | payer MEDICARE, MEDICAID ==
[~2025-03-04] MED LIST changes: +TOPI-256; -TOPI25TA10
== END ==
LOC: M RAD 10:18
PROVIDERS: ATTEND Nurse Practitioner Family
DX: R91.1 Solitary pulmonary nodule (principal); F17.210 Nicotine dependence, cigarettes, uncomplicated

== ENCOUNTER → 2025-07-08 | Outpatient (CLI) | payer MEDICARE, MEDICAID ==
[~2025-07-08] MED LIST changes: -ROSU10TA61 PO; +ROSU10TA90 PO
== END ==
LOC: M WUC 10:56
PROVIDERS: ATTEND Nurse Practitioner Family
DX: M46.96 Unspecified inflammatory spondylopathy, lumbar region (principal); R07.81 Pleurodynia; M47.12 Other spondylosis with myelopathy, cervical region; M47.814 Spondylosis without myelopathy or radiculopathy, thoracic region; Z12.31 Encounter for screening mammogram for malignant neoplasm of breast

== ENCOUNTER → 2025-07-08 | Outpatient (CLI) | payer MEDICARE, MEDICAID | LOC: M WHC 07:45 | PROVIDERS: ATTEND Nurse Practitioner Family | DX: Z12.31 Encounter for screening mammogram for malignant neoplasm of breast (principal); R92.313 Mammographic fatty tissue density, bilateral breasts ==